=== PATIENT | male | born 1940 | race Caucasian/White ===

== ENCOUNTER 2019-08-28 18:03 | Emergency (ER) | payer OTHER ==
[~2019-08-28] VITALS: Ht 177.8 cm; Wt 68.9 kg
[2019-08-28 22:11] LABS: Basophils # (auto) 0.1 uL; Basophils % (auto) 0.8 % (0.0-2.0); Eosinophils # (auto) 0.3 uL; Eosinophils % (auto) 4.2 % (0.0-7.0); Hemoglobin 14.4 g/dL (13.5-17.5); Lymphocytes # (auto) 1.7 uL; Lymphocytes % (auto) 25.9 % (10.0-50.0); Mean Corpuscular Hemoglobin 32.6 pg (28.0-32.0); Mean Corpuscular Hgb Conc. 34.3 g/dL (32.0-36.0); Mean Corpuscular Volume 95.1 fL (80.0-100.0); Monocytes # (auto) 0.6 uL; Monocytes % (auto) 9.4 % (0.0-12.0); Neutrophils % (auto) 59.7 % (37.0-80.0); Nucleated Red Blood Cells % 0.1 %; Platelet Count (auto) 208 10^3/uL (140-450); Red Blood Cells 4.42 10^6/uL (4.5-5.90); Red Cell Distribution Width 13.1 % (11.8-14.3); White Blood Cell 6.7 10^3/uL (4.4-10.8)
[2019-08-28 22:35] LABS: Albumin 3.8 g/dL (3.4-5.0); BUN/Creatinine Ratio 18.9; Bilirubin, Total 0.6 mg/dL (0.2-1.0); Calcium 8.9 mg/dL (8.5-10.1); Potassium 4.6 mmol/L (3.5-5.1)
[2019-08-28 23:28] LABS: Urine Bacteria NONE SEEN /hpf (None Seen); Urine Blood Negative /uL (Negative); Urine Specific Gravity 1.009 (1.001-1.035); Urine WBC <1 /hpf (0 - 3)
[2019-08-29 00:01] VITALS: BP 136/62
== END 2019-08-29 00:21 | disposition home or self-care (01) ==
LOC: ER 18:04
DX: K40.90 Unilateral inguinal hernia, without obstruction or gangrene, not specified as recurrent (principal); K27.9 Peptic ulcer, site unspecified, unspecified as acute or chronic, without hemorrhage or perforation; J44.9 Chronic obstructive pulmonary disease, unspecified
CPT/HCPCS: 36415; 74176; 80053; 81001; 82150; 83690; 85025

== ENCOUNTER 2025-10-10 08:08 | Inpatient (IN) | payer OTHER ==
[~2025-10-10] VITALS: Ht 180.3 cm; Wt 67.6 kg
--- NOTE | 2025-10-10 08:41 | ED.PDOC ---
SOB-HPI HPI Comments 85-year-old male presents to the ED via EMS with a chief complaint of shortness of breath onset 1 day. Patient states he has been experiencing shortness of breath as well as hallucinations since last night, noticed this morning shortness of breath had worsened. Patient states he was at [facility] a 2 days ago, was discharged, was told he had a virus, had appointment today for CT chest. Denies fever, chills, headache, dizziness, nausea, vomiting, diarrhea, dysuria, chest pain. No other symptoms or modifying factors present at this time. Chief Complaint: Shortness of Breath Time Seen by MD: 08:30 Reviewed notes: Medications, Allergies Information Source: Patient, Emergency Med Personnel Mode of Arrival: EMS Severity: Moderate Timing: Days Duration: Since onset Context: At Rest PE Risk Factors: None History of: Recent URI Prehospital treatment: None Modifying Factors: Nothing Past Medical History PAST MEDICAL HISTORY: Denies Surgical History: Denies all surgeries Family History Family History: Reviewed,noncontributory to illness, No family hx of Cancer, No family hx of DM, No family hx of Heart dayami, No family hx of HTN, No family hx ofKidney dayami, No family hx of Liver dayami, No family hx of Lung dayami, No family hx of Stroke Social History Smoker: Non-Smoker Alcohol: Denies ETOH Use Drugs: Denies Drug Use Lives In: Home Constitutional: denies: chills, diaphoresis, fatigue, fever, malaise, sweats, weakness, others EENTM: denies: blurred vision, double vision, ear bleeding, ear discharge, ear drainage, ear pain, ear ringing, eye pain, eye redness, hearing loss, mouth pain, mouth swelling, nasal discharge, nose bleeding, nose congestion, nose pain, photophobia, tearing, throat pain, throat swelling, voice changes, others Respiratory: reports: shortness of breath; denies: cough, hemoptysis, ortho pnea, SOB at rest, SOB with excertion, stridor, wheezing, others Cardiovascular: denies: chest pain, dizzy spells, diaphoresis, Dyspnea on exertion, edema, irregular heart beat, left arm pain, lightheadedness, palpitations, PND, syncope, others Gastrointestinal: denies: abdomen distended, abdominal pain, blood streaked bowels, constipated, diarrhea, dysphagia, difficulty swallowing, hematemesis, melena, nausea, poor appetite, poor fluid intake, rectal bleeding, rectal pain, vomiting, others Genitourinary: denies: burning, dysuria, flank pain, frequency, hematuria, inc ontinence, penile discharge, penile sore, pain, testicle pain, testicle swelling, urgency, others Neurological: denies: dizziness, fainting, headache, left sided numbness, left sided weakness, numbness, paresthesia, pre-existing deficit, right sided numbness, right sided weakness, seizure, speech problems, tingling, tremors, weakness, others Musculoskeletal: denies: back pain, gout, joint pain, joint swelling, muscle pain, muscle stiffness, neck pain, others Integumetry: denies: bruises, change in color, change in hair/nails, dryness, laceration, lesions, lumps, rash, wounds, others Allergic/Immunocompromised: denies: Difficulty Healing, Frequent Infections, Hives, Itching, others Hematologic/Lymphatic: denies: anemia, blood clots, easy bleeding, easy bruising, swollen glands, others Endocrine: denies: excessive hunger, excessive sweating, excessive thirst, excessive urination, flushing, intolerance to cold, intolerance to heat, unexplained weight gain, unexplained weight loss, others Psychiatric: reports: others (hallucinations); denies: anxiety, bipolar disorder, depression, hopeless, panic disorder, schizophrenia, sleepless, suicidal All Other Systems: Reviewed and Negative Physical Exam General Appearance: Moderate Distress, Normal HEENT: Normal ENT Inspection, Pharynx Normal, TMs Normal Neck: Full Range of Motion, Non-Tender, Normal, Normal Inspection Respiratory: Chest Non-Tender, No Accessory Muscle Use, Other (Coarse breath sounds) Cardiovascular: No Edema, No JVD, No Murmur, No Gallop, Normal Peripheral Pulses, Regular Rate/Rhythm Breast Exam: Deferred Gastrointestinal: No Organomegaly, Non Tender, No Pulsatile Mass, Normal Bowel Sounds, Soft Genitalia: Deferred Pelvic: Deferred Rectal: Deferred Extremities: No calf tenderness, Normal capillary refill, Normal inspection, Normal range of motion, Non-tender, No pedal edema Musculoskeletal : Apperance: Normal Neurologic: Alert, supervisor riprap placing II-XII nml as Tested, No Motor Deficits, Normal Affect, Normal Mood, No Sensory Deficits Cerebellar Function: NOT DONE Reflexes: NOT DONE Skin: Dry, Normal Color, Warm Peripheral Pulses: 3+ Radial (R), 3+ Radial (L) Lymphatic: No Adenopathy EKG EKG : Pulse Rate (adult): 80 Cardiac Rhythm: NSR Hypertrophy: LVH Was a procedure done? Was a procedure done?: No Differential Dx Differential Diagnosis: Anxiety, Asthma, Bronchitis, CHF, COPD X-Ray, Labs, Meds, VS Vital Signs Date Time Temp Pulse Resp B/P (MAP) Pulse Ox O2 Delivery O2 Flow Rate FiO2 10/10/25 10:10 98.0 71 15 109/62 (78) 92 98.0 10/10/25 08:54 80 10/10/25 08:32 80 10/10/25 08:24 97.7 86 20 129/53 (78) 94 97.7 10/10/25 08:09 97.8 87 18 146/75 100 97.8 Lab Test 10/10/25 10:04 10/10/25 08:54 Range/Units Troponin I High Sensitivity Pending 32 </=54 ng/L White Blood Count 9.4 4.4-10.8 10^3/uL Red Blood Count 4.44 L 4.5-5.90 10^6/uL Hemoglobin 14.2 13.5-17.5 g/dL Hematocrit 40.9 L 41.0-53.0 % Mean Corpuscular Volume 92.0 80.0-100.0 fL Mean Corpuscular Hemoglobin 32.0 28.0-32.0 pg Mean Corpuscular Hemoglobin Concent 34.7 32.0-36.0 g/dL Red Cell Distribution Width 13.7 11.8-14.3 % Platelet Count 255 140-450 10^3/uL Mean Platelet Volume 7.0 6.9-10.8 fL Neutrophils (%) (Auto) 77.8 37.0-80.0 % Lymphocytes (%) (Auto) 14.4 10.0-50.0 % Monocytes (%) (Auto) 7.3 0.0-12.0 % Eosinophils (%) (Auto) 0.3 0.0-7.0 % Basophils (%) (Auto) 0.2 0.0-2.0 % Neutrophils # (Auto) 7.3 1.6-8.6 10 ^3/uL Lymphocytes # (Auto) 1.3 0.4-5.4 10 ^3/uL Monocytes # (Auto) 0.7 0-1.3 10 ^3/uL Eosinophils # (Auto) 0 0-0.8 10 ^3/uL Basophils # (Auto) 0 0-0.2 10 ^3/uL Nucleated Red Blood Cells 0.1 % Sodium Level 140 136-145 mmol/L Potassium Level 4.3 3.5-5.1 mmol/L Chloride Level 104 98-107 mmol/L Carbon Dioxide Level 26 20-31 mmol/L Anion Gap 10 5-15 Blood Urea Nitrogen 15 9-23 mg/dL Creatinine 1.01 0.700-1.30 mg/dL Glomerular Filtration Rate Calc 72 >90 mL/min BUN/Creatinine Ratio 14.9 10.0-20.0 Serum Glucose 101 74-106 mg/dL Calcium Level 9.3 8.7-10.4 mg/dL B-Type Natriuretic Peptide 177.83 0-100 pg/mL [place] [id number] Ph: [phone] DIAGNOSTIC IMAGING Diagnostic Imaging Report : [id number] Signed PATIENT: JOHNSON LEIJA ACCT: [id number] UNIT: [id number] : 1940 LOC: ER ROOM / BED: / AGE / SEX: 85 / M ADM STATUS: REG ER SERVICE 9 ORDERING PHYSICIAN: SEAN CRUZ MD PROCEDURE(s): CXRP - CHEST PORTABLE REASON: sob ORDER NUMBER(s): [id number], ACCESSION NUMBER(s): [id number] CLINICAL HISTORY: sob TECHNIQUE: Single view of the chest was obtained. COMPARISON: None FINDINGS: The heart size and pulmonary vasculature are normal. The lungs are clear. IMPRESSION: NO ACUTE CARDIOPULMONARY PROCESS. ATED BY: SHANELL CABALLERO MD DICTATED DATE/TIME: 10/10/25924 SIGNED BY: SHANELL CABALLERO MD SIGNED DATE/TIME: 10/10/25924 CC: Patient alert. Vitals stable. Came in because of shortness a breath. Answering questions. Chest x-ray reviewed does not show any acute process. Possible pneumonitis. Was seen at [facility] few days ago for which she left without any help. Continues to have shortness a breath. Was given steroid. Was given breathing treatment. Explained to the patient that he will be admitted. Continue monitoring. Time of 1ST Reevaluation: 09:00 Reevaluation 1ST: Unchanged Patient Education/Counseling: Diagnosis, Treatment, Prognosis Family Education/Counseling: No Family Present SEPSIS Sepsis Screen Date sepsis recognized/suspect: Oct 10, 2025 Time Sepsis recognized/suspect: 808 Recent Procedure: No On Antibiotic Therapy: No Respiratory Rate >20: No Heart Rate >90: No Temp<36 C (96.8 F) or >38.3 C: No SBP <90 or MAP <65 mmHG: No New Acute Mental Status Change: No Is the patient on CPAP, BIPAP,: No Physician Orders Chest Portable (10/10/25 08:40) Urinalysis (10/10/25 08:40) Troponin-I Hs (10/10/25 09:40) Troponin-I Hs (10/10/25 11:40) Rapid Influenza A&B (10/10/25 08:40) Covid19 Antigen Karli (10/10/25 ) Vital Signs Date Time Temp Pulse Resp B/P (MAP) Pulse Ox O2 Delivery O2 Flow Rate FiO2 10/10/25 10:10 98.0 71 15 109/62 (78) 92 98.0 10/10/25 08:54 80 10/10/25 08:32 80 10/10/25 08:24 97.7 86 20 129/53 (78) 94 97.7 10/10/25 08:09 97.8 87 18 146/75 100 97.8 Laboratory Tests Test 10/10/25 08:54 White Blood Count 9.4 10^3/uL (4.4-10.8) Departure 1 Departure Time of Disposition: 10:22 Impression: Primary Impression: Pneumonitis Disposition: ADMITTED INPATIENT Admit to: Med Surg Condition: Guarded Critical Care Note Critical Care Time?: Yes (90 min-critical care time only) Stability Stability form required: No Heart Score Heart Score: Heart Score Response (Comments) Value History N/A 0 EKG N/A 0 Age N/A 0 Risk Factors N/A 0 Troponin N/A 0 Total 0 I personally scribed for NANCY,SEAN MD ([email or web address]) on 10/10/25 at 08:41. Electronically submitted by Emilie Franklin ([email or web address]). I personally scribed for SEAN CRUZ MD ([email or web address]) on 10/10/25 at 08:54. Electronically submitted by Emilie Franklin ([email or web address]). I personally scribed for SEAN CRUZ MD ([email or web address]) on 10/10/25 at 09:55. Electronically submitted by Emilie Franklin ([email or web address]). SEAN CRUZ MD Oct 10, 2025 08:41
--- NOTE | 2025-10-10 08:49 | ECG ---
[facility] Test Date: 2025-10-10 Test Time: 08:32:00 Pat Name: JOHNSON LEIJA Department: ED Room: [address] [place] [address] Gender: M Control Panel Operator: CHIDI : 1940 Requested By: SEAN CRUZ Order Number: [id number] Reading MD: Wallace Cardenas Measurements Intervals [place] Rate: 80 P: 90 MO: 136 QRS: 73 QRSD: 91 T: 11 QT: 417 QTc: 482 Interpretive Statements Sinus rhythm LVH with secondary repolarization abnormality Borderline prolonged QT interval Baseline wander in lead(s) V1,V4 Electronically Signed On 10-10-2025 15:09:03 PST by Wallace Cardenas Please click the below link to view image of tracing.
[2025-10-10 09:11] LABS: Hematocrit 40.9 % (41.0-53.0); Hemoglobin 14.2 g/dL (13.5-17.5); Mean Corpuscular Hemoglobin 32.0 pg (28.0-32.0); Mean Corpuscular Volume 92.0 fL (80.0-100.0); Nucleated Red Blood Cells % 0.1 %
[2025-10-10 09:22] LABS: Chloride 104 mmol/L (98-107); Potassium 4.3 mmol/L (3.5-5.1); Sodium 140 mmol/L (136-145)
[2025-10-10 09:23] LABS: Anion Gap 10 (5-15); Calcium 9.3 mg/dL (8.7-10.4); Carbon Dioxide 26 mmol/L (20-31)
--- NOTE | 2025-10-10 09:27 | DVH ---
CLINICAL HISTORY: sob TECHNIQUE: Single view of the chest was obtained. COMPARISON: None FINDINGS: The heart size and pulmonary vasculature are normal. The lungs are clear. IMPRESSION: NO ACUTE CARDIOPULMONARY PROCESS.
[2025-10-10 09:28] LABS: BUN/Creatinine Ratio 14.9 (10.0-20.0); Blood Urea Nitrogen 15 mg/dL (9-23); Glucose 101 mg/dL (74-106)
[2025-10-10] MEDS: methylPREDNISolone SOD SUCC 125 MG/2 ML VL IV ONE (10:24)
[2025-10-10] MEDS ORDERED: ACETAMINOPHEN 325 MG TAB PO PRN (10:30)
[2025-10-10] MEDS ORDERED: ONDANSETRON HCL 4 MG/2 ML VIAL IV PRN (10:30)
[2025-10-10] MEDS ORDERED: HYDROcodone-ACET 5/325MG TAB PO PRN (10:30)
[2025-10-10] MEDS: SODIUM CHLOR 0.9% PF (SALINE LOCK) 10ML VIAL/SYR IV SCH (10:48)
[2025-10-10] MEDS: ALBUTEROL SULF 2.5 MG/0.5ML(0.5%) NEB SOLN NEB ONE (10:58)
[2025-10-10] MEDS: IPRATROPIUM BROM 0.5 MG/2.5ML INH SOL NEB ONE (10:58)
--- NOTE | 2025-10-10 11:26 | DVHHP2 ---
History of Present Illness Reason for Visit: Acute respiratory distress History of Present Illness The patient is a 85-year-old male with past medical history of hyperlipidemia who presented to [facility] ED with complaint of shortness of breaths for the past 1 day. Patient reports that he has been experiencing di fficulty breathing associated with hallucination since last night, getting worse today that prompted this visit. Patient states he was seen at [facility] 2 days ago with similar symptoms, discharged, and was told he had a virus; had appointment today for CT chest. Patient was seen and evaluated in the ED, laboratory data shows WBC 9.4, platelets 255, sodium 140, potassium 4.3, BUN 15, creatinine 1.01, GFR 72, glucose 101, calcium 9.3, troponin 32, BNP 177.83, blood pressure 109/62, heart rate 72, temperature 98.0 F, O2 saturation 94% on oxygen. Chest x-ray show no acute cardiopulmonary process. Please see medication orders section in the computer. On my assessment, patient denied chest pain, no headache, dizziness, diaphoresis, currently on oxygen, no diarrhea, nausea, vomiting, fever, no chills. Patient was admitted for further evaluation and medical management. Past Medical History Hyperlipidemia Past Surgical History Denies all surgeries Family History Reviewed, noncontributory to the management of this case. Past Social History The patient lives at home, denies smoking, alcohol or illicit drugs abuse. Review of Systems Constitutional: Yes: Weakness; No: Fever, Chills, Sweats, Malaise, Other Eyes: No: Pain, Vision change, Conjunctivae inflammation, Eyelid inflammation, Other, Redness ENT: No: Ear pain, Ear discharge, Nose pain, Nose discharge, Nose congestion, Mouth pain, Mouth swelling, Throat pain, Throat swelling, Other Respiratory: Shortness of breath; No: Cough, Dry, SOB with excertion, Wheezing, Hemoptysis, Pleuritic Pain, Sputum, Wheezing, Other Cardiovascular: No: Chest Pain, Palpitations, Orthopnea, Paroxysmal Noc. Dyspnea, Edema, Lt Headedness, Other Gastrointestinal: No: Nausea, Vomiting, Abdominal Pain, Diarrhea, Constipation, Melena, Hematochezia, Other Genitourinary: No Dysuria, No Frequency, No Incontinence, No Hematuria, No Retention, No Other Musculoskeletal: No: other, neck pain, shoulder pain, arm pain, back pain, hand pain, leg pain, foot pain Skin: No: Rash, Lesions, Jaundice, Bruising, Other Neurological: No: Weakness, Numbness, Incoordination, Change in speech, Confusion, Seizures, Other Allergies: Coded Allergies: NO KNOWN ALLERGIES (Unverified , 10/10/25) Medications Current Medications Medications Dose Ordered Sig/Boni Route Start Time Stop Time Status Last Admin Dose Admin Albuterol 2.5 mg Q3HPRN PRN NEB 10/10/25 10:30 Ipratropium [place] 0.5 mg Q4HPRN PRN NEB 10/10/25 10:30 Methylprednisolone Sodium Succinate 40 mg BID IV 10/10/25 22:00 Famotidine 20 mg Q12HR IV 10/10/25 22:00 Sodium Chloride 10 ml Q8HR IV 10/10/25 14:00 10/10/25 10:48 10 ML Acetaminophen/ Hydrocodone Bitart 1 tab Q4HP PRN PO 10/10/25 10:30 Ondansetron HCl 4 mg Q4HP PRN IV 10/10/25 10:30 Docusate Sodium 100 mg BIDPRN PRN PO 10/10/25 10:30 Acetaminophen 650 mg Q6HP PRN PO 10/10/25 10:30 Exam Vital Signs Vital Signs Date Time Temp Pulse Resp B/P (MAP) Pulse Ox O2 Delivery O2 Flow Rate FiO2 10/10/25 11:02 20 96 Room Air* 0 21 10/10/25 10:10 98.0 71 109/62 (78) 98.0 General Appearance: Alert, Oriented X3, Cooperative, No acute distress HEENT: Atraumatic, PERRLA, EOMI, Mucous membr. moist/pink Respiratory: Normal air movement Cardiovascular: Regular rate, Normal S1, Normal S2, No murmurs Abdominal: Normal bowel sounds, Soft, No tenderness, No hepatospenomegaly, No masses Extremities: No clubbing, No cyanosis, No edema, Normal pulses, No tenderness/swelling Skin: No rashes, No significant lesion Neuro: Normal speech, Normal tone, Sensation intact, Cranial nerves 3-12 NL, Reflexes 2+, Other (Generalized weakness) Psych/Mental Status: Mental status NL, Mood NL Labs/Xrays Labs Test 10/10/25 11:03 10/10/25 08:54 Range/Units White Blood Count 9.4 4.4-10.8 10^3/uL Red Blood Count 4.44 L 4.5-5.90 10^6/uL Hemoglobin 14.2 13.5-17.5 g/dL Hematocrit 40.9 L 41.0-53.0 % Mean Corpuscular Volume 92.0 80.0-100.0 fL Mean Corpuscular Hemoglobin 32.0 28.0-32.0 pg Mean Corpuscular Hemoglobin Concent 34.7 32.0-36.0 g/dL Red Cell Distribution Width 13.7 11.8-14.3 % Platelet Count 255 140-450 10^3/uL Mean Platelet Volume 7.0 6.9-10.8 fL Neutrophils (%) (Auto) 77.8 37.0-80.0 % Lymphocytes (%) (Auto) 14.4 10.0-50.0 % Monocytes (%) (Auto) 7.3 0.0-12.0 % Eosinophils (%) (Auto) 0.3 0.0-7.0 % Basophils (%) (Auto) 0.2 0.0-2.0 % Neutrophils # (Auto) 7.3 1.6-8.6 10 ^3/uL Lymphocytes # (Auto) 1.3 0.4-5.4 10 ^3/uL Monocytes # (Auto) 0.7 0-1.3 10 ^3/uL Eosinophils # (Auto) 0 0-0.8 10 ^3/uL Basophils # (Auto) 0 0-0.2 10 ^3/uL Nucleated Red Blood Cells 0.1 % Sodium Level 140 136-145 mmol/L Potassium Level 4.3 3.5-5.1 mmol/L Chloride Level 104 98-107 mmol/L Carbon Dioxide Level 26 20-31 mmol/L Anion Gap 10 5-15 Blood Urea Nitrogen 15 9-23 mg/dL Creatinine 1.01 0.700-1.30 mg/dL Glomerular Filtration Rate Calc 72 >90 mL/min BUN/Creatinine Ratio 14.9 10.0-20.0 Serum Glucose 101 74-106 mg/dL Calcium Level 9.3 8.7-10.4 mg/dL B-Type Natriuretic Peptide 177.83 0-100 pg/mL PATIENT: JOHNSON LEIJA ACCT: [id number] UNIT: [id number] : 1940 LOC: ER ROOM / BED: / AGE / SEX: 85 / M ADM STATUS: REG ER SERVICE 0840 ORDERING PHYSICIAN: SEAN CRUZ MD PROCEDURE(s): CXRP - CHEST PORTABLE REASON: sob ORDER NUMBER(s): [id number], ACCESSION NUMBER(s): [id number] CLINICAL HISTORY: sob TECHNIQUE: Single view of the chest was obtained. COMPARISON: None FINDINGS: The heart size and pulmonary vasculature are normal. The lungs are clear. IMPRESSION: NO ACUTE CARDIOPULMONARY PROCESS. SEPSIS Sepsis Screen Date sepsis recognized/suspect: Oct 10, 2025 Time Sepsis recognized/suspect: 808 Recent Procedure: No On Antibiotic Therapy: No Respiratory Rate >20: No Heart Rate >90: No Temp<36 C (96.8 F) or >38.3 C: No SBP <90 or MAP <65 mmHG: No New Acute Mental Status Change: No Is the patient on CPAP, BIPAP,: No Physician Orders Chest Portable (10/10/25 08:40) Urinalysis (10/10/25 08:40) Troponin-I Hs (10/10/25 11:40) Rapid Influenza A&B (10/10/25 08:40) Covid19 Antigen Karli (10/10/25 ) Albuterol Medneb (Ventolin Medneb) (10/10/25 10:30) Ipratropium Medneb (Atrovent Medneb) (10/10/25 10:30) Methylprednisolone Sod Succ (Solu Medrol (10/10/25 22:00) Famotidine Injection (Pepcid Injection) (10/10/25 22:00) Allergies (10/10/25 10:26) Code Status (10/10/25 10:26) Sodium Chloride Lock (Saline Lock Ns) (10/10/25 14:00) Oxygen Per Hour (10/10/25 10:26) Hydrocodone-Acet 5/325mg Tab ([place] 5/32 (10/10/25 10:30) Ondansetron Hcl (Zofran) (10/10/25 10:30) Docusate Sodium Capsule (Colace Capsule) (10/10/25 10:30) Fall Risk Precautions In Place QSHIFT (10/10/25 10:26) Complete Blood Count (10/11/25 04:00) Comprehensive Metabolic Panel (10/11/25 04:00) Cardiac Diet-2gna,Lofat,Lochol (10/10/25 Lunch) Condition: Serious (10/10/25 10:26) Acetaminophen Tablet (Tylenol Tablet) (10/10/25 10:30) Maintain Bed Rest (10/10/25 10:26) Sequential Compression Device (10/10/25 ) Admit (10/10/25 11:25) Nitroglycerin Sublingual (Ntrostat Subli (10/10/25 11:30) Morphine Sulfate Injection (10/10/25 11:30) Stat Ekg For Chest Pain (10/10/25:) Notify Of Changes From Base (10/10/25 11:25) Fruit Farmer For 24 Hours (10/10/25 11:25) Emergency Dysrhythmia Protocol (10/10/25 11:25) Rhythm Strips Once Every Shift (10/10/25 11:25) Oxygen By Nasal Cannula (10/10/25 11:25) Vital Signs Date Time Temp Pulse Resp B/P (MAP) Pulse Ox O2 Delivery O2 Flow Rate FiO2 10/10/25 11:02 20 96 Room Air* 0 21 10/10/25 10:30 20 94 Room Air 0 10/10/25 10:10 98.0 71 15 109/62 (78) 92 98.0 10/10/25 08:54 80 10/10/25 08:32 80 10/10/25 08:24 97.7 86 20 129/53 (78) 94 97.7 10/10/25 08:09 97.8 87 18 146/75 100 97.8 Laboratory Tests Test 10/10/25 08:54 White Blood Count 9.4 10^3/uL (4.4-10.8) Medications Medications Dose Ordered Sig/Boni Route Start Time Stop Time Status Last Admin Dose Admin Albuterol 5 mg ONCE ONCE NEB 10/10/25 10:30 10/10/25 10:31 DC 10/10/25 10:58 5 MG Ipratropium [place] 0.5 mg ONCE ONCE NEB 10/10/25 10:30 10/10/25 10:31 DC 10/10/25 10:58 0.5 MG Methylprednisolone Sodium Succinate 125 mg ONCE ONCE IV 10/10/25 08:45 10/10/25 08:46 DC 10/10/25 10:24 125 MG Sodium Chloride 10 ml Q8HR IV 10/10/25 14:00 10/10/25 10:48 10 ML Assessment/Plan Assessment/Plan Acute respiratory distress Generalized weakness Plan 1. Admit to telemetry unit 2. Breathing treatment 3. Pain control management 4. Management of fluids and electrolytes 5. Consultation for hospitalist 6. Diagnostic tests chest x-ray 7. DVT prophylaxis-on SCDs 8. Repeat labs CBC, CMP in a.m. 9. Continue with current medical management 10. Treatment plan discussed with patient and RN. Patient verbalized understanding. Plan discussed with: Patient, Other (RN) My Orders Orders - KENRICK PEREZ DNP Procedure Category Date Status Time Albuterol Medneb PHA 10/10/25 In Process (Ventolin Medneb) 10:30 Ipratropium Medneb PHA 10/10/25 In Process (Atrovent Medneb) 10:30 Methylprednisolone PHA 10/10/25 In Process Sod Succ (Solu Medrol 22:00 Famotidine Injection PHA 10/10/25 In Process (Pepcid Injection) 22:00 Allergies DAVID 10/10/25 In Process 10:26 Code Status CODE 10/10/25 Transmitted 10:26 Sodium Chloride Lock PHA 10/10/25 In Process (Saline Lock Ns) 14:00 Oxygen Per Hour RT 10/10/25 Transmitted 10:26 Hydrocodone-Acet PHA 10/10/25 In Process 5/325mg Tab ([place] 10:30 Ondansetron Hcl PHA 10/10/25 In Process (Zofran) 10:30 Docusate Sodium PHA 10/10/25 In Process Capsule (Colace 10:30 Fall Risk Precautions DAVID 10/10/[address] 10:26 Complete Blood Count LAB 10/11/25 Verified 04:00 Comprehensive LAB 10/11/25 Verified Metabolic Panel 04:00 Cardiac DIET 10/10/25 Transmitted Diet-2gna,Lofat,Lochol Lunch Condition: Serious DAVID 10/10/25 In Process 10:26 Acetaminophen Tablet PHA 10/10/25 In Process (Tylenol Tablet) 10:30 Maintain Bed Rest DAVID 12/2/25 In Process 10:26 Sequential DAVID 10/10/25 In Process Compression Device Admit ADMIT 10/10/25 Verified 11:25 Nitroglycerin PHA 10/10/25 Verified Sublingual (Ntrostat 11:30 Morphine Sulfate PHA 10/10/25 Verified Injection 11:30 Stat Ekg For Chest [facility] 10/10/25 Verified Pain 11:25 Notify Md Of Changes [facility] 10/10/25 Verified From Base 11:25 Fruit Farmer For [facility] 10/10/25 Verified 24 Hours 11:25 Emergency Dysrhythmia [facility] 10/10/25 Verified Protocol 11:25 Rhythm Strips Once [facility] 10/10/25 Verified Every Shift 11:25 Oxygen By Nasal RT 10/10/25 Verified Cannula 11:25 Problem List: (1) Acute respiratory distress (2) Generalized weakness Date of Service: Oct 10, 2025 Billing Provider: KENRICK PEREZ DNP Common Visit Codes: [id number] INP/OBS CARE (HIGH) KENRICK PEREZ DNP Oct 10, 2025 11:26
[2025-10-10] MEDS ORDERED: NITROGLYCERIN 0.4 MG SL TAB SL PRN (11:30)
[2025-10-10 12:04] VITALS: PULSE 71; RESP 20; O2SAT 96
[2025-10-10 12:42] LABS: Urine Protein, UAD Negative (Negative)
[2025-10-10] MEDS ORDERED: MORPHINE SULFATE 4 MG/ML SYR/VIAL IV PRN (12:45)
[2025-10-10 15:16] VITALS: PULSE 85; RESP 17; O2SAT 94
[2025-10-10 16:08] LABS: COVID19 ANTIGEN SOFIA FIA NEGATIVE (NEGATIVE)
[2025-10-10 18:12] VITALS: BP 129/70; PULSE 77; RESP 16; TEMP 98.1; O2SAT 94
[2025-10-10] MEDS ORDERED: ATOR20TA50 PO (18:23)
[2025-10-10] MEDS ORDERED: ALBU108A5 INH (18:23)
[2025-10-10] MEDS ORDERED: PRED20TA2 PO (18:23)
[2025-10-10 20:00] VITALS: PULSE 86
[2025-10-10 21:00] VITALS: BP 120/64; PULSE 94; RESP 18; TEMP 98.4; O2SAT 95
[2025-10-10] MEDS: FAMOTIDINE (10MG/ML) 2ML VL IV SCH (21:29)
[2025-10-10] MEDS: methylPREDNISolone SOD SUCC 40 MG/ML VL IV SCH (21:29)
[2025-10-10] MEDS: IPRATROPIUM BROM 0.5 MG/2.5ML INH SOL NEB PRN (21:51)
[2025-10-10] MEDS: ALBUTEROL SULF 2.5 MG/0.5ML(0.5%) NEB SOLN NEB PRN (21:51)
[2025-10-10 21:53] VITALS: PULSE 88; RESP 18; O2SAT 94
[2025-10-11] VITALS (15 sets, daily range): BP systolic 112–132; BP diastolic 58–76; PULSE 61–97; RESP 16–20; TEMP 97.8–98.8; O2SAT 91–100
[2025-10-11 06:30] LABS: Hematocrit 39.5 % (41.0-53.0); Hemoglobin 13.5 g/dL (13.5-17.5); Mean Corpuscular Hemoglobin 31.2 pg (28.0-32.0); Mean Corpuscular Volume 91.6 fL (80.0-100.0); Nucleated Red Blood Cells % 0.0 %
[2025-10-11 06:46] LABS: Alanine Aminotransferase 23 U/L (7-40); Albumin 3.9 g/dL (3.2-4.8); Alkaline Phosphatase 74 U/L (46-116); Anion Gap 9 (5-15); BUN/Creatinine Ratio 24.0 (10.0-20.0); Bilirubin, Total 0.7 mg/dL (0.2-1.0); Calcium 9.3 mg/dL (8.7-10.4); Carbon Dioxide 25 mmol/L (20-31); Chloride 105 mmol/L (98-107); Potassium 5.0 mmol/L (3.5-5.1); Sodium 139 mmol/L (136-145); Total Protein 6.5 g/dL (5.7-8.2)
[2025-10-11 06:49] LABS: Blood Urea Nitrogen 24 mg/dL (9-23); Glucose 125 mg/dL (74-106)
[2025-10-11] MEDS: IPRATROPIUM BROM 0.5 MG/2.5ML INH SOL NEB SCH (14:16)
[2025-10-11] MEDS: ALBUTEROL SULF 2.5 MG/0.5ML(0.5%) NEB SOLN NEB SCH (14:16)
[2025-10-11] MEDS ORDERED: guaiFENesin-DM 100/10mg/5ml SYR PO PRN (15:15)
--- NOTE | 2025-10-11 15:17 | DVHPN2 ---
Subjective Patient continues to report having productive cough and shortness of breath. Reviewed: Care Plan, H&P, Labs, Medications Changes from previous H/P or p: No Changes General: Per HPI Eyes: No Pain, No Vision change, No Conjunctivae inflammation, No Eyelid inflammation, No Other, No Redness ENT: No Ear pain, No Ear discharge, No Nose pain, No Nose discharge, No Nose congestion, No Mouth pain, No Mouth swelling, No Throat pain, No Throat swelling, No Other Cardiovascular: No Chest Pain, No Palpitations, No Orthopnea, No Paroxysmal Noc. Dyspnea, No Edema, No Lt Headedness, No Other Respiratory: No Cough, No Dry; Shortness of breath; No SOB with excertion, No Wheezing, No Hemoptysis, No Pleuritic Pain, No Sputum, No Other Gastrointestinal: No Nausea, No Vomiting, No Abdominal Pain, No Diarrhea, No Constipation, No Melena, No Hematochezia, No Other Genitourinary: No Dysuria, No Frequency, No Incontinence, No Hematuria, No Retention, No Other Musculoskeletal: No other, No neck pain, No shoulder pain, No arm pain, No back pain, No hand pain, No leg pain, No foot pain Skin: No Rash, No Lesions, No Jaundice, No Bruising, No Other Objective Vitals Vital Signs Date Time Temp Pulse Resp B/P (MAP) Pulse Ox O2 Delivery O2 Flow Rate FiO2 10/11/25 14:16 93 Room Air* 0 21 10/11/25 14:16 90 18 10/11/25 12:30 97.8 123/65 (84) 97.8 Intake/Output Intake and Output 10/11/25 07:00 Intake Total 400 ml Balance 400 ml Intake Oral 400 ml # Voids 1 General Appearance: Alert, Oriented X3, Cooperative, moderate distress HEENT: Atraumatic, PERRLA Lungs: Other (Bilateral rhonchi) Cardiovascular: Normal S1, Normal S2 Abdomen: Normal bowel sounds, Soft, No tenderness, No hepatospenomegaly Musculoskeletal: Normal sensory function, Normal motor function Extremities: No clubbing, No cyanosis, No edema, Normal pulses, No tenderness/swelling Neuro: Normal gait, Normal speech Skin: Dry, Intact Psych/Mental Status: Mental status NL, Mood NL Medications Current Medications Medications Dose Ordered Sig/Boni Route Start Time Stop Time Status Last Admin Dose Admin Methylprednisolone Sodium Succinate 40 mg BID IV 10/10/25 22:00 10/11/25 10:28 40 MG Famotidine 20 mg Q12HR IV 10/10/25 22:00 10/11/25 10:28 20 MG Sodium Chloride 10 ml Q8HR IV 10/10/25 14:00 10/11/25 05:08 10 ML Acetaminophen/ Hydrocodone Bitart 1 tab Q4HP PRN PO 10/10/25 10:30 Ondansetron HCl 4 mg Q4HP PRN IV 10/10/25 10:30 Docusate Sodium 100 mg BIDPRN PRN PO 10/10/25 10:30 Acetaminophen 650 mg Q6HP PRN PO 10/10/25 10:30 Nitroglycerin 0.4 mg Q5MINP PRN SL 10/10/25 11:30 Morphine Sulfate 2 mg Q30M PRN IV 10/10/25 12:45 Albuterol 2.5 mg Q4HR NEB 10/11/25 14:00 10/11/25 14:16 2.5 MG Ipratropium [place] 0.5 mg Q4H NEB 10/11/25 14:00 10/11/25 14:16 0.5 MG Acetylcysteine 100 mg Q8HR NEB 10/11/25 22:00 UNV Pantoprazole Sodium 40 mg DAILY@0600 PO 10/12/25 06:00 UNV Budesonide 0.5 mg BID NEB 10/11/25 22:00 UNV Laboratory Results Laboratory Tests 10/11/25 05:44 Chemistry Test 10/11/25 05:44 Albumin 3.9 g/dL (3.2-4.8) Calcium Level 9.3 mg/dL (8.7-10.4) Total Protein 6.5 g/dL (5.7-8.2) LFT Test 10/11/25 05:44 Alanine Aminotransferase (ALT) 23 U/L (7-40) Alkaline Phosphatase 74 U/L (46-116) Aspartate Amino Transferase (AST) 23 U/L (13-40) Total Bilirubin 0.7 mg/dL (0.2-1.0) Urinalysis Test 10/10/25 12:00 Urine Color Light-yellow (Yellow) Urine Clarity Clear (Clear) Urine pH 5.0 (5.0-9.0) Urine Specific [place] 1.015 (1.001-1.035) Urine Protein Negative (Negative) Urine Ketones 1+ (Negative) H Urine Blood Negative /uL (Negative) Urine Nitrite Negative (Negative) Urine Bilirubin Negative (Negative) Urine Urobilinogen Normal mg/dL (Negative) Urine Leukocyte Esterase Negative /uL (Negative) Urine RBC None seen /hpf (0 - 3) Urine Microscopic WBC < 1 /HPF (0-3) Urine Squamous Epithelial Cells None seen /hpf (<5) Urine Bacteria None seen /hpf (None Seen) Urine Mucus Few (None Seen) Urine Glucose Normal mg/dL (Normal) Microbiology Microbiology Date/Time Source Procedure Growth Status 10/10/25 18:57 Nose MRSA Screen - Final Complete Labs and/or images reviewed: Labs reviewed by me, Image(s) reviewed by me Assessment/Plan Assessment/Plan Impression: -acute hypoxic respiratory failure -probable COPD with exacerbation -probable Gram-positive/Gram-negative etiology -primary hypertension -dyslipidemia -rule out cervical spine stenosis Plan: -CT scan of the chest pain cervical spine -start antibiotic therapy with Rocephin and azithromycin -q.4 hour bronchodilators with DuoNeb. Add Pulmicort b.i.d.. Mucomyst q.8 hours with the area of the treatment -start antitussives with guaifenesin DM -sputum culture -PPI -repeat labs in a.m. Total time spent with patient discussing and formulating plan of care: 35 minutes. This medical document was created using an electronic medical record system with [employer] dictation system. Although this document has been carefully reviewed, there may still be some phonetic and typographical errors. These areas are purely typographical due to imperfections of the software programs, and do not reflect any compromise in the patient's medical care. Plan discussed with: Patient, Other (RN) My Orders Orders - FABIOLA MORENO BIOINFORMATICS SOFTWARE ENGINEER Procedure Category Date Status Time Albuterol Medneb PHA 10/11/25 In Process (Ventolin Medneb) 14:00 Ipratropium Medneb PHA 10/11/25 In Process (Atrovent Medneb) 14:00 Acetylcysteine PHA 10/11/25 Logged Inhalation 10% 22:00 Pantoprazole Tablet PHA 10/12/25 Logged (Protonix Tablet) 06:00 Budesonide PHA 10/11/25 Logged (Inhalation) 22:[address] 10/11/25 Logged 15:[address] 10/11/25 Logged Contrast 15:07 Date of Service: Oct 11, 2025 Billing Provider: FABIOLA MORENO NP Common Visit Codes: [id number] INP/OBS CARE(HIGH) FABIOLA MORENO NP Oct 11, 2025 15:17
--- NOTE | 2025-10-11 16:39 | DVH ---
EXAM: CT CERVICAL WITHOUT CONTRAST INDICATION: Neck pain, with right shoulder paresthesia. Rule out C- samantha EXAM DATE: 10/11/2025 03:30 PM COMPARISON: None Technique: CT exam of the cervical spine was performed without intravenous contrast. CT Dose: CTDI volume is 19.57 mGy. Dose-length product is 472.02 mGy*cm Findings: No evidence of acute fracture. Alignment is within normal limits. Degenerative changes of the cervical spine. No high-grade canal stenosis. No prevertebral edema. Paraspinal soft tissues are within normal limits. Visualized lung apices are clear. IMPRESSION: NO EVIDENCE OF ACUTE FRACTURE OR TRAUMATIC MALALIGNMENT OF THE CERVICAL SPINE.
--- NOTE | 2025-10-11 16:43 | DVH ---
Exam: CT CHEST WITHOUT CONTRAST Reason for study/Clinical History: pna, COPD Comparison Study: XY CHEST PORTABLE on DOS: 10/10/25 Exam Date: 10/11/2025 03:32 PM TECHNIQUE: Multidetector CT of the chest was performed from the lung apices to the upper abdomen without the use of intravenous contract. Axial, coronal and sagittal multiplanar reformats were performed. Radiation Dose Information: CT Dose: CTDI volume is 6.86 mGy. Dose-length product is 291.04 mGy*cm The dose indicators for CT are the volume Computed Tomography (CT) Dose Index (CTDIvol) and the Dose Length Product (DLP), and are measured in units of mGy and mGy-cm, respectively. These indicators are not patient dose, but values generated from the CT scanner acquisition factors. The report includes radiation exposure data for exposures received during this examination. Findings: Lower neck: Unremarkable. Lungs and Pleura: Diffuse bronchial wall thickening with bilateral lower lobe mucous plugging and tree-in-bud nodularities. No focal consolidation. No significant pleural effusion. Lymph nodes: No mediastinal, hilar, or axillary lymphadenopathy. Calcified right hilar lymph node likely from granulomatous infection. Cardiovascular and Mediastinum: No significant pericardial effusion. Scattered coronary calcifications. Osseous and soft tissues: No suspicious osseous lesions. Multilevel degenerative changes of the thoracic spine. DISH. Upper abdomen: No acute abnormality in the visualized upper abdomen. IMPRESSION: Diffuse bronchial wall thickening with bilateral lower lobe mucous plugging and tree-in-bud nodularities. Findings could represent aspiration pneumonia and/or infectious bronchiolitis.
[2025-10-11] MEDS: BUDESONIDE (INHALATION) 0.5 MG/2 ML NEB NEB SCH (19:09)
[2025-10-11] MEDS: ACETYLCYSTEINE 10 %(100MG/ML) SOL 4ML NEB SCH (22:54)
[2025-10-12] VITALS (20 sets, daily range): BP systolic 109–131; BP diastolic 59–74; PULSE 71–99; RESP 14–20; TEMP 97.6–99.2; O2SAT 91–99
[2025-10-12] MEDS: PANTOPRAZOLE 40 MG TAB PO SCH (05:02)
[2025-10-12 06:11] LABS: Calcium 9.2 mg/dL (8.7-10.4); Chloride 105 mmol/L (98-107); Potassium 4.5 mmol/L (3.5-5.1); Sodium 139 mmol/L (136-145)
[2025-10-12 06:12] LABS: Anion Gap 11 (5-15); Carbon Dioxide 23 mmol/L (20-31)
[2025-10-12 06:17] LABS: BUN/Creatinine Ratio 21.9 (10.0-20.0)
[2025-10-12 06:18] LABS: Magnesium 2.0 mg/dL (1.6-2.6)
[2025-10-12 06:33] LABS: Blood Urea Nitrogen 23 mg/dL (9-23); Glucose 128 mg/dL (74-106)
--- NOTE | 2025-10-12 09:44 | DVHPN2 ---
Subjective Patient has complaints of non productive cough. Reviewed: Care Plan, H&P, Labs, Medications, Previous Orders Changes from previous H/P or p: No Changes General: Per HPI Eyes: No Pain, No Vision change, No Conjunctivae inflammation, No Eyelid inflammation, No Other, No Redness ENT: No Ear pain, No Ear discharge, No Nose pain, No Nose discharge, No Nose congestion, No Mouth pain, No Mouth swelling, No Throat pain, No Throat swelling, No Other Cardiovascular: No Chest Pain, No Palpitations, No Orthopnea, No Paroxysmal Noc. Dyspnea, No Edema, No Lt Headedness, No Other Respiratory: Cough; No Dry; Shortness of breath; No SOB with excertion, No Wheezing, No Hemoptysis, No Pleuritic Pain, No Sputum, No Other Gastrointestinal: No Nausea, No Vomiting, No Abdominal Pain, No Diarrhea, No Constipation, No Melena, No Hematochezia, No Other Genitourinary: No Dysuria, No Frequency, No Incontinence, No Hematuria, No Retention, No Other Musculoskeletal: No other, No neck pain, No shoulder pain, No arm pain, No back pain, No hand pain, No leg pain, No foot pain Skin: No Rash, No Lesions, No Jaundice, No Bruising, No Other Objective Vitals Vital Signs Date Time Temp Pulse Resp B/P (MAP) Pulse Ox O2 Delivery O2 Flow Rate FiO2 10/12/25 09:00 98.6 91 18 123/66 (85) 94 98.6 10/12/25 05:49 Room Air* 0 21 Intake/Output Intake and Output 10/12/25 07:00 Intake Total 700 ml Balance 700 ml Intake Oral 650 ml IV Total 50 ml # Voids 3 # Bowel Movements 1 General Appearance: Alert, Oriented X3, Cooperative, mild distress HEENT: Atraumatic, PERRLA Lungs: Other (Bilateral rhonchi) Cardiovascular: Normal S1, Normal S2 Abdomen: Normal bowel sounds, Soft, No tenderness, No hepatospenomegaly Musculoskeletal: Normal sensory function, Normal motor function Extremities: No clubbing, No cyanosis, No edema, Normal pulses, No tenderness/swelling Neuro: Normal gait, Normal speech Skin: Dry, Intact Psych/Mental Status: Mental status NL, Mood NL Medications Current Medications Medications Dose Ordered Sig/Boni Route Start Time Stop Time Status Last Admin Dose Admin Methylprednisolone Sodium Succinate 40 mg BID IV 10/10/25 22:00 10/11/25 22:40 40 MG Sodium Chloride 10 ml Q8HR IV 10/10/25 14:00 10/12/25 05:02 10 ML Acetaminophen/ Hydrocodone Bitart 1 tab Q4HP PRN PO 10/10/25 10:30 Ondansetron HCl 4 mg Q4HP PRN IV 10/10/25 10:30 Docusate Sodium 100 mg BIDPRN PRN PO 10/10/25 10:30 Acetaminophen 650 mg Q6HP PRN PO 10/10/25 10:30 Nitroglycerin 0.4 mg Q5MINP PRN SL 10/10/25 11:30 Morphine Sulfate 2 mg Q30M PRN IV 10/10/25 12:45 Albuterol 2.5 mg Q4HR NEB 10/11/25 14:00 10/12/25 05:48 2.5 MG Ipratropium [place] 0.5 mg Q4H NEB 10/11/25 14:00 10/12/25 05:48 0.5 MG Acetylcysteine 100 mg Q8HR NEB 10/11/25 22:00 10/12/25 05:49 100 MG Pantoprazole Sodium 40 mg DAILY@0600 PO 10/12/25 06:00 10/12/25 05:02 40 MG Budesonide 0.5 mg BID NEB 10/11/25 22:00 10/11/25 19:09 0.5 MG Guaifenesin/ Dextromethorphan 10 ml Q4HP PRN PO 10/11/25 15:15 Ceftriaxone Sodium 50 ml @ 100 mls/hr DAILY@09 IV 10/11/25 15:15 10/11/25 16:11 100 MLS/HR Azithromycin 250 ml @ 125 mls/hr DAILY IV 10/12/25 10:00 Laboratory Results Laboratory Tests 10/11/25 05:44 10/12/25 05:32 Chemistry Test 10/12/25 05:32 Calcium Level 9.2 mg/dL (8.7-10.4) Magnesium Level 2.0 mg/dL (1.6-2.6) Urinalysis Test 10/10/25 12:00 Urine Color Light-yellow (Yellow) Urine Clarity Clear (Clear) Urine pH 5.0 (5.0-9.0) Urine Specific [place] 1.015 (1.001-1.035) Urine Protein Negative (Negative) Urine Ketones 1+ (Negative) H Urine Blood Negative /uL (Negative) Urine Nitrite Negative (Negative) Urine Bilirubin Negative (Negative) Urine Urobilinogen Normal mg/dL (Negative) Urine Leukocyte Esterase Negative /uL (Negative) Urine RBC None seen /hpf (0 - 3) Urine Microscopic WBC < 1 /HPF (0-3) Urine Squamous Epithelial Cells None seen /hpf (<5) Urine Bacteria None seen /hpf (None Seen) Urine Mucus Few (None Seen) Urine Glucose Normal mg/dL (Normal) Microbiology Microbiology Date/Time Source Procedure Growth Status 10/10/25 18:57 Nose MRSA Screen - Final Complete Labs and/or images reviewed: Labs reviewed by me, Image(s) reviewed by me Assessment/Plan Assessment/Plan Impression: -acute hypoxic respiratory failure -probable COPD with exacerbation -probable Gram-positive/Gram-negative etiology -primary hypertension -dyslipidemia -rule out cervical spine stenosis Plan: -Continue antibiotic therapy with Rocephin and azithromycin -Continue q.4 hour bronchodilators with DuoNeb, Pulmicort b.i.d., and Mucomyst q.8 hours -Continue antitussives with guaifenesin DM -Sputum culture -PPI -repeat labs in a.m. Total time spent with patient discussing and formulating plan of care: 35 minutes. Plan discussed with: Patient, Other (RN) Date of Service: Oct 12, 2025 Billing Provider: FABIOLA MORENO NP Common Visit Codes: [id number] INP/OBS CARE(HIGH) SOHEILA MACKEY STUDENT [employer] TEAM LEADER Oct 12, 2025 09:44
--- NOTE | 2025-10-12 12:56 | DVHPN2 ---
Subjective Patient continues to report having productive cough and shortness of breath. Reviewed: Care Plan, H&P, Labs, Medications, Previous Orders Changes from previous H/P or p: No Changes General: Per HPI Eyes: No Pain, No Vision change, No Conjunctivae inflammation, No Eyelid inflammation, No Other, No Redness ENT: No Ear pain, No Ear discharge, No Nose pain, No Nose discharge, No Nose congestion, No Mouth pain, No Mouth swelling, No Throat pain, No Throat swelling, No Other Cardiovascular: No Chest Pain, No Palpitations, No Orthopnea, No Paroxysmal Noc. Dyspnea, No Edema, No Lt Headedness, No Other Respiratory: Cough; No Dry; Shortness of breath; No SOB with excertion, No Wheezing, No Hemoptysis, No Pleuritic Pain, No Sputum, No Other Gastrointestinal: No Nausea, No Vomiting, No Abdominal Pain, No Diarrhea, No Constipation, No Melena, No Hematochezia, No Other Genitourinary: No Dysuria, No Frequency, No Incontinence, No Hematuria, No Retention, No Other Musculoskeletal: No other, No neck pain, No shoulder pain, No arm pain, No back pain, No hand pain, No leg pain, No foot pain Skin: No Rash, No Lesions, No Jaundice, No Bruising, No Other Objective Vitals Vital Signs Date Time Temp Pulse Resp B/P (MAP) Pulse Ox O2 Delivery O2 Flow Rate FiO2 10/12/25 12:32 97.6 82 19 111/59 (76) 93 97.6 10/12/25 10:25 Room Air* 0 21 Intake/Output Intake and Output 10/12/25 07:00 Intake Total 700 ml Balance 700 ml Intake Oral 650 ml IV Total 50 ml # Voids 3 # Bowel Movements 1 General Appearance: Alert, Oriented X3, Cooperative, mild distress HEENT: Atraumatic, PERRLA Lungs: Other (Bilateral rhonchi) Cardiovascular: Normal S1, Normal S2 Abdomen: Normal bowel sounds, Soft, No tenderness, No hepatospenomegaly Musculoskeletal: Normal sensory function, Normal motor function Extremities: No clubbing, No cyanosis, No edema, Normal pulses, No tenderness/swelling Neuro: Normal gait, Normal speech, Cranial nerves 3-12 NL Skin: Dry, Intact Psych/Mental Status: Mental status NL, Mood NL Medications Current Medications Medications Dose Ordered Sig/Boni Route Start Time Stop Time Status Last Admin Dose Admin Methylprednisolone Sodium Succinate 40 mg BID IV 10/10/25 22:00 10/12/25 10:19 40 MG Sodium Chloride 10 ml Q8HR IV 10/10/25 14:00 10/12/25 05:02 10 ML Acetaminophen/ Hydrocodone Bitart 1 tab Q4HP PRN PO 10/10/25 10:30 Ondansetron HCl 4 mg Q4HP PRN IV 10/10/25 10:30 Docusate Sodium 100 mg BIDPRN PRN PO 10/10/25 10:30 Acetaminophen 650 mg Q6HP PRN PO 10/10/25 10:30 Nitroglycerin 0.4 mg Q5MINP PRN SL 10/10/25 11:30 Morphine Sulfate 2 mg Q30M PRN IV 10/10/25 12:45 Albuterol 2.5 mg Q4HR NEB 10/11/25 14:00 10/12/25 10:25 2.5 MG Ipratropium [place] 0.5 mg Q4H NEB 10/11/25 14:00 10/12/25 10:25 0.5 MG Acetylcysteine 100 mg Q8HR NEB 10/11/25 22:00 10/12/25 05:49 100 MG Pantoprazole Sodium 40 mg DAILY@0600 PO 10/12/25 06:00 10/12/25 05:02 40 MG Budesonide 0.5 mg BID NEB 10/11/25 22:00 10/12/25 10:25 0.5 MG Guaifenesin/ Dextromethorphan 10 ml Q4HP PRN PO 10/11/25 15:15 Ceftriaxone Sodium 50 ml @ 100 mls/hr DAILY@09 IV 10/11/25 15:15 10/12/25 10:19 100 MLS/HR Azithromycin 250 ml @ 125 mls/hr DAILY IV 10/12/25 10:00 Laboratory Results Laboratory Tests 10/11/25 05:44 10/12/25 05:32 Chemistry Test 10/12/25 05:32 Calcium Level 9.2 mg/dL (8.7-10.4) Magnesium Level 2.0 mg/dL (1.6-2.6) Urinalysis Test 10/10/25 12:00 Urine Color Light-yellow (Yellow) Urine Clarity Clear (Clear) Urine pH 5.0 (5.0-9.0) Urine Specific [place] 1.015 (1.001-1.035) Urine Protein Negative (Negative) Urine Ketones 1+ (Negative) H Urine Blood Negative /uL (Negative) Urine Nitrite Negative (Negative) Urine Bilirubin Negative (Negative) Urine Urobilinogen Normal mg/dL (Negative) Urine Leukocyte Esterase Negative /uL (Negative) Urine RBC None seen /hpf (0 - 3) Urine Microscopic WBC < 1 /HPF (0-3) Urine Squamous Epithelial Cells None seen /hpf (<5) Urine Bacteria None seen /hpf (None Seen) Urine Mucus Few (None Seen) Urine Glucose Normal mg/dL (Normal) Microbiology Microbiology Date/Time Source Procedure Growth Status 10/10/25 18:57 Nose MRSA Screen - Final Complete Labs and/or images reviewed: Labs reviewed by me, Image(s) reviewed by me Assessment/Plan Assessment/Plan Impression: -acute hypoxic respiratory failure -probable COPD with exacerbation -probable Gram-positive/Gram-negative etiology -primary hypertension -dyslipidemia -rule out cervical spine stenosis Plan: Events: CT scan of the chest reveals bibasilar pneumonia. CT cervical spine unremarkable -start antibiotic therapy with Rocephin and azithromycin -q.4 hour bronchodilators with DuoNeb. Add Pulmicort b.i.d.. Mucomyst q.8 hours with the area of the treatment -start antitussives with guaifenesin DM -sputum culture -PPI -repeat labs in a.m. Total time spent with patient discussing and formulating plan of care: 35 minutes. This medical document was created using an electronic medical record system with [employer] dictation system. Although this document has been carefully reviewed, there may still be some phonetic and typographical errors. These areas are purely typographical due to imperfections of the software programs, and do not reflect any compromise in the patient's medical care. Plan discussed with: Patient, Other (RN) My Orders Orders - FABIOLA MORENO OPERATIONS PLANNER Procedure Category Date Status Time Albuterol Medneb PHA 10/11/25 In Process (Ventolin Medneb) 14:00 Ipratropium Medneb PHA 10/11/25 In Process (Atrovent Medneb) 14:00 Acetylcysteine PHA 10/11/25 In Process Inhalation 10% 22:00 Pantoprazole Tablet PHA 10/12/25 In Process (Protonix Tablet) 06:00 Budesonide PHA 10/11/25 In Process (Inhalation) 22:[address] 10/11/25 Resulted 15:[address] 10/11/25 Resulted Contrast 15:07 Guaifenesin-Dextromet PHA 10/11/25 In Process Liquid (Robitussin 15:15 Ceftriaxone 1gm/50ml PHA 10/11/25 In Process (Rocephin) 15:15 Azithromycin PHA 10/12/25 In Process 500mg/250ml 10:00 Complete Blood Count LAB 10/13/25 Verified 04:00 Basic Metabolic Panel LAB 10/13/25 Verified 04:00 Date of Service: Oct 12, 2025 Billing Provider: FABIOLA MORENO NP Common Visit Codes: [id number] INP/OBS CARE(HIGH) FABIOLA MORENO NP Oct 12, 2025 12:56
[2025-10-12] MEDS: AZITHROMYCIN 500MG/250ML 250 ML IV SCH (14:08)
[2025-10-13] VITALS (20 sets, daily range): BP systolic 106–123; BP diastolic 63–75; PULSE 70–98; RESP 16–19; TEMP 97.4–98.5; O2SAT 90–100
[2025-10-13 05:59] LABS: Hematocrit 37.6 % (41.0-53.0); Hemoglobin 13.1 g/dL (13.5-17.5); Mean Corpuscular Hemoglobin 31.8 pg (28.0-32.0); Mean Corpuscular Volume 91.1 fL (80.0-100.0); Nucleated Red Blood Cells % 0.2 %
[2025-10-13 06:11] LABS: Anion Gap 9 (5-15); Carbon Dioxide 27 mmol/L (20-31); Chloride 103 mmol/L (98-107); Potassium 4.3 mmol/L (3.5-5.1); Sodium 139 mmol/L (136-145)
[2025-10-13 06:12] LABS: Calcium 9.1 mg/dL (8.7-10.4)
[2025-10-13 06:17] LABS: BUN/Creatinine Ratio 23.5 (10.0-20.0); Blood Urea Nitrogen 23 mg/dL (9-23); Glucose 99 mg/dL (74-106)
--- NOTE | 2025-10-13 08:58 | DVHPN2 ---
Reviewed: Care Plan, H&P, Labs, Medications, Previous Orders Changes from previous H/P or p: No Changes General: Per HPI Eyes: No Pain, No Vision change, No Conjunctivae inflammation, No Eyelid inflammation, No Other, No Redness ENT: No Ear pain, No Ear discharge, No Nose pain, No Nose discharge, No Nose congestion, No Mouth pain, No Mouth swelling, No Throat pain, No Throat swelling, No Other Cardiovascular: No Chest Pain, No Palpitations, No Orthopnea, No Paroxysmal Noc. Dyspnea, No Edema, No Lt Headedness, No Other Respiratory: Cough; No Dry; Shortness of breath; No SOB with excertion, No Wheezing, No Hemoptysis, No Pleuritic Pain, No Sputum, No Other Gastrointestinal: No Nausea, No Vomiting, No Abdominal Pain, No Diarrhea, No Constipation, No Melena, No Hematochezia, No Other Genitourinary: No Dysuria, No Frequency, No Incontinence, No Hematuria, No Retention, No Other Musculoskeletal: No other, No neck pain, No shoulder pain, No arm pain, No back pain, No hand pain, No leg pain, No foot pain Skin: No Rash, No Lesions, No Jaundice, No Bruising, No Other Objective Vitals Vital Signs Date Time Temp Pulse Resp B/P (MAP) Pulse Ox O2 Delivery O2 Flow Rate FiO2 10/13/25 08:44 97.4 76 18 121/70 (87) 90 97.4 10/13/25 06:02 Room Air* 0 21 Intake/Output Intake and Output 10/13/25 07:00 Intake Total 2000 ml Balance 2000 ml Intake Oral 1700 ml IV Total 300 ml # Voids 6 # Bowel Movements 5 General Appearance: Alert, Oriented X3, Cooperative, mild distress HEENT: Atraumatic, PERRLA Lungs: Other (Bilateral rhonchi) Cardiovascular: Normal S1, Normal S2 Abdomen: Normal bowel sounds, Soft, No tenderness, No hepatospenomegaly Musculoskeletal: Normal sensory function, Normal motor function Extremities: No clubbing, No cyanosis, No edema, Normal pulses, No tenderness/swelling Neuro: Normal gait, Normal speech Skin: Dry, Intact Psych/Mental Status: Mental status NL, Mood NL Medications Current Medications Medications Dose Ordered Sig/Boni Route Start Time Stop Time Status Last Admin Dose Admin Methylprednisolone Sodium Succinate 40 mg BID IV 10/10/25 22:00 10/12/25 21:13 40 MG Sodium Chloride 10 ml Q8HR IV 10/10/25 14:00 10/13/25 05:29 10 ML Acetaminophen/ Hydrocodone Bitart 1 tab Q4HP PRN PO 10/10/25 10:30 Ondansetron HCl 4 mg Q4HP PRN IV 10/10/25 10:30 Docusate Sodium 100 mg BIDPRN PRN PO 10/10/25 10:30 Acetaminophen 650 mg Q6HP PRN PO 10/10/25 10:30 Nitroglycerin 0.4 mg Q5MINP PRN SL 10/10/25 11:30 Morphine Sulfate 2 mg Q30M PRN IV 10/10/25 12:45 Albuterol 2.5 mg Q4HR NEB 10/11/25 14:00 10/13/25 06:01 2.5 MG Ipratropium [place] 0.5 mg Q4H NEB 10/11/25 14:00 10/13/25 06:01 0.5 MG Acetylcysteine 100 mg Q8HR NEB 10/11/25 22:00 10/13/25 06:02 100 MG Pantoprazole Sodium 40 mg DAILY@0600 PO 10/12/25 06:00 10/13/25 05:29 40 MG Budesonide 0.5 mg BID NEB 10/11/25 22:00 10/13/25 06:01 0.5 MG Guaifenesin/ Dextromethorphan 10 ml Q4HP PRN PO 10/11/25 15:15 Ceftriaxone Sodium 50 ml @ 100 mls/hr DAILY@09 IV 10/11/25 15:15 10/12/25 10:19 100 MLS/HR Azithromycin 250 ml @ 125 mls/hr DAILY IV 10/12/25 10:00 10/12/25 14:08 125 MLS/HR Laboratory Results Laboratory Tests 10/13/25 05:43 Chemistry Test 10/13/25 05:43 Calcium Level 9.1 mg/dL (8.7-10.4) Urinalysis Test 10/10/25 12:00 Urine Color Light-yellow (Yellow) Urine Clarity Clear (Clear) Urine pH 5.0 (5.0-9.0) Urine Specific [place] 1.015 (1.001-1.035) Urine Protein Negative (Negative) Urine Ketones 1+ (Negative) H Urine Blood Negative /uL (Negative) Urine Nitrite Negative (Negative) Urine Bilirubin Negative (Negative) Urine Urobilinogen Normal mg/dL (Negative) Urine Leukocyte Esterase Negative /uL (Negative) Urine RBC None seen /hpf (0 - 3) Urine Microscopic WBC < 1 /HPF (0-3) Urine Squamous Epithelial Cells None seen /hpf (<5) Urine Bacteria None seen /hpf (None Seen) Urine Mucus Few (None Seen) Urine Glucose Normal mg/dL (Normal) Microbiology Microbiology Date/Time Source Procedure Growth Status 10/10/25 18:57 Nose MRSA Screen - Final Complete Labs and/or images reviewed: Labs reviewed by me, Image(s) reviewed by me Assessment/Plan Assessment/Plan Impression: -acute hypoxic respiratory failure -probable COPD with exacerbation -probable Gram-positive/Gram-negative etiology -primary hypertension -dyslipidemia -rule out cervical spine stenosis Plan: -patient no longer on oxygen. placed on room air. -Continue antibiotic therapy with Rocephin and azithromycin -Continue q.4 hour bronchodilators with DuoNeb, Pulmicort b.i.d., and Mucomyst q.8 hours -Continue antitussives with guaifenesin DM -Sputum culture -PPI -repeat labs in a.m. -discharge planning for tomorrow. Total time spent with patient discussing and formulating plan of care: 35 minutes. Plan discussed with: Patient, Other (RN) Date of Service: Oct 13, 2025 Billing Provider: FABIOLA MORENO NP Common Visit Codes: [id number] INP/OBS CARE(HIGH) SOHEILA MACKEY [employer]UDENT [employer] WORKER Oct 13, 2025 08:58
[2025-10-13] MEDS ORDERED: ALBUAER3 IN (13:38)
[2025-10-13] MEDS ORDERED: DOXY100C79 PO (13:38)
[2025-10-13] MEDS ORDERED: ALBU0.636 IN (13:38)
--- NOTE | 2025-10-13 13:40 | DVHPN2 ---
Subjective Patient reports improvement with shortness of breaths and cough. Reviewed: Care Plan, H&P, Labs, Medications, Previous Orders Changes from previous H/P or p: No Changes General: Per HPI Eyes: No Pain, No Vision change, No Conjunctivae inflammation, No Eyelid inflammation, No Other, No Redness ENT: No Ear pain, No Ear discharge, No Nose pain, No Nose discharge, No Nose congestion, No Mouth pain, No Mouth swelling, No Throat pain, No Throat swelling, No Other Cardiovascular: No Chest Pain, No Palpitations, No Orthopnea, No Paroxysmal Noc. Dyspnea, No Edema, No Lt Headedness, No Other Respiratory: Cough; No Dry; Shortness of breath; No SOB with excertion, No Wheezing, No Hemoptysis, No Pleuritic Pain, No Sputum, No Other Gastrointestinal: No Nausea, No Vomiting, No Abdominal Pain, No Diarrhea, No Constipation, No Melena, No Hematochezia, No Other Genitourinary: No Dysuria, No Frequency, No Incontinence, No Hematuria, No Retention, No Other Musculoskeletal: No other, No neck pain, No shoulder pain, No arm pain, No back pain, No hand pain, No leg pain, No foot pain Skin: No Rash, No Lesions, No Jaundice, No Bruising, No Other Objective Vitals Vital Signs Date Time Temp Pulse Resp B/P (MAP) Pulse Ox O2 Delivery O2 Flow Rate FiO2 10/13/25 12:04 81 19 121/70 97 2.0 10/13/25 09:35 Nasal Cannula* 28 10/13/25 08:44 97.4 97.4 Intake/Output Intake and Output 10/13/25 07:00 Intake Total 2000 ml Balance 2000 ml Intake Oral 1700 ml IV Total 300 ml # Voids 6 # Bowel Movements 5 General Appearance: Alert, Oriented X3, Cooperative, mild distress HEENT: Atraumatic, PERRLA Lungs: Other (Bilateral rhonchi) Cardiovascular: Normal S1, Normal S2 Abdomen: Normal bowel sounds, Soft, No tenderness, No hepatospenomegaly Musculoskeletal: Normal sensory function, Normal motor function Extremities: No clubbing, No cyanosis, No edema, Normal pulses, No tenderness/swelling Neuro: Normal gait, Normal speech Skin: Dry, Intact Psych/Mental Status: Mental status NL, Mood NL Medications Current Medications Medications Dose Ordered Sig/Boni Route Start Time Stop Time Status Last Admin Dose Admin Methylprednisolone Sodium Succinate 40 mg BID IV 10/10/25 22:00 10/13/25 10:20 40 MG Sodium Chloride 10 ml Q8HR IV 10/10/25 14:00 10/13/25 05:29 10 ML Acetaminophen/ Hydrocodone Bitart 1 tab Q4HP PRN PO 10/10/25 10:30 Ondansetron HCl 4 mg Q4HP PRN IV 10/10/25 10:30 Docusate Sodium 100 mg BIDPRN PRN PO 10/10/25 10:30 Acetaminophen 650 mg Q6HP PRN PO 10/10/25 10:30 Nitroglycerin 0.4 mg Q5MINP PRN SL 10/10/25 11:30 Morphine Sulfate 2 mg Q30M PRN IV 10/10/25 12:45 Albuterol 2.5 mg Q4HR NEB 10/11/25 14:00 10/13/25 09:29 2.5 MG Ipratropium [place] 0.5 mg Q4H NEB 10/11/25 14:00 10/13/25 09:29 0.5 MG Acetylcysteine 100 mg Q8HR NEB 10/11/25 22:00 10/13/25 06:02 100 MG Pantoprazole Sodium 40 mg DAILY@0600 PO 10/12/25 06:00 10/13/25 05:29 40 MG Budesonide 0.5 mg BID NEB 10/11/25 22:00 10/13/25 06:01 0.5 MG Guaifenesin/ Dextromethorphan 10 ml Q4HP PRN PO 10/11/25 15:15 Ceftriaxone Sodium 50 ml @ 100 mls/hr DAILY@09 IV 10/11/25 15:15 10/13/25 10:19 100 MLS/HR Azithromycin 250 ml @ 125 mls/hr DAILY IV 10/12/25 10:00 10/13/25 11:33 125 MLS/HR Laboratory Results Laboratory Tests 10/13/25 05:43 Chemistry Test 10/13/25 05:43 Calcium Level 9.1 mg/dL (8.7-10.4) Urinalysis Test 10/10/25 12:00 Urine Color Light-yellow (Yellow) Urine Clarity Clear (Clear) Urine pH 5.0 (5.0-9.0) Urine Specific [place] 1.015 (1.001-1.035) Urine Protein Negative (Negative) Urine Ketones 1+ (Negative) H Urine Blood Negative /uL (Negative) Urine Nitrite Negative (Negative) Urine Bilirubin Negative (Negative) Urine Urobilinogen Normal mg/dL (Negative) Urine Leukocyte Esterase Negative /uL (Negative) Urine RBC None seen /hpf (0 - 3) Urine Microscopic WBC < 1 /HPF (0-3) Urine Squamous Epithelial Cells None seen /hpf (<5) Urine Bacteria None seen /hpf (None Seen) Urine Mucus Few (None Seen) Urine Glucose Normal mg/dL (Normal) Microbiology Microbiology Date/Time Source Procedure Growth Status 10/10/25 18:57 Nose MRSA Screen - Final Complete Labs and/or images reviewed: Labs reviewed by me, Image(s) reviewed by me Assessment/Plan Assessment/Plan Impression: -acute hypoxic respiratory failure -probable COPD with exacerbation -probable Gram-positive/Gram-negative etiology -primary hypertension -dyslipidemia -rule out cervical spine stenosis Plan: Events: Patient weaned onto room air today. Continues to have wheezing and rhonchi. -start antibiotic therapy with Rocephin and azithromycin -q.4 hour bronchodilators with DuoNeb. Add Pulmicort b.i.d.. Mucomyst q.8 hours with the area of the treatment -start antitussives with guaifenesin DM -PPI -repeat labs in a.m. -reassess for discharge in a.m.. [facility] Total time spent with patient discussing and formulating plan of care: 35 minutes. This medical document was created using an electronic medical record system with [employer] dictation system. Although this document has been carefully reviewed, there may still be some phonetic and typographical errors. These areas are purely typographical due to imperfections of the software programs, and do not reflect any compromise in the patient's medical care. Plan discussed with: Patient, Other (RN) My Orders Orders - FABIOLA MORENO NP Procedure Category Date Status Time Magnesium LAB 10/14/25 Verified 04:00 Basic Metabolic Panel LAB 10/14/25 Verified 04:00 Chest Portable XY 10/14/25 Logged 04:00 Complete Blood Count LAB 10/14/25 Verified 04:00 Date of Service: Oct 13, 2025 Billing Provider: FABIOLA MORENO NP Common Visit Codes: [id number] INP/OBS CARE(HIGH) FABIOLA MORENO NP Oct 13, 2025 13:40
[2025-10-14] VITALS (20 sets, daily range): BP systolic 110–130; BP diastolic 64–86; PULSE 64–97; RESP 16–20; TEMP 97.6–98.4; O2SAT 91–100
--- NOTE | 2025-10-14 06:37 | DVH ---
CHEST RADIOGRAPH Indication: pna Technique: Single frontal view of the chest was obtained COMPARISON: CT CHEST WITHOUT CONTRAST on DOS: 10/11/25, XY CHEST PORTABLE on DOS: 10/10/25 FINDINGS: Lines and Tubes: None Lungs: Clear Pleura: No effusion. No pneumothorax. Cardiomediastinal contours: Unremarkable Bones: Unremarkable IMPRESSION: 1. No acute disease.
[2025-10-14 07:47] LABS: Hematocrit 38.9 % (41.0-53.0); Hemoglobin 13.5 g/dL (13.5-17.5); Mean Corpuscular Hemoglobin 31.9 pg (28.0-32.0); Mean Corpuscular Volume 91.9 fL (80.0-100.0); Nucleated Red Blood Cells % 0.0 %
[2025-10-14 08:54] LABS: Anion Gap 13 (5-15); Calcium 9.1 mg/dL (8.7-10.4); Carbon Dioxide 25 mmol/L (20-31); Chloride 100 mmol/L (98-107); Potassium 4.3 mmol/L (3.5-5.1); Sodium 138 mmol/L (136-145)
[2025-10-14 09:00] LABS: BUN/Creatinine Ratio 25.8 (10.0-20.0); Glucose 103 mg/dL (74-106)
[2025-10-14 09:01] LABS: Blood Urea Nitrogen 24 mg/dL (9-23); Magnesium 2.1 mg/dL (1.6-2.6)
[2025-10-15] VITALS (12 sets, daily range): BP systolic 105–115; BP diastolic 59–73; PULSE 76–96; RESP 14–20; TEMP 36.7; O2SAT 92–99
[2025-10-15] MEDS: DOCUSATE SOD 100 MG CAP PO PRN (02:05)
--- NOTE | 2025-10-15 09:59 | DVHPN2 ---
Reviewed: Care Plan, H&P, Labs, Medications, Previous Orders Changes from previous H/P or p: No Changes General: Per HPI Eyes: No Pain, No Vision change, No Conjunctivae inflammation, No Eyelid inflammation, No Other, No Redness ENT: No Ear pain, No Ear discharge, No Nose pain, No Nose discharge, No Nose congestion, No Mouth pain, No Mouth swelling, No Throat pain, No Throat swelling, No Other Cardiovascular: No Chest Pain, No Palpitations, No Orthopnea, No Paroxysmal Noc. Dyspnea, No Edema, No Lt Headedness, No Other Respiratory: Cough; No Dry; Shortness of breath; No SOB with excertion, No Wheezing, No Hemoptysis, No Pleuritic Pain, No Sputum, No Other Gastrointestinal: No Nausea, No Vomiting, No Abdominal Pain, No Diarrhea, No Constipation, No Melena, No Hematochezia, No Other Genitourinary: No Dysuria, No Frequency, No Incontinence, No Hematuria, No Retention, No Other Musculoskeletal: No other, No neck pain, No shoulder pain, No arm pain, No back pain, No hand pain, No leg pain, No foot pain Skin: No Rash, No Lesions, No Jaundice, No Bruising, No Other Objective Vitals Vital Signs Date Time Temp Pulse Resp B/P (MAP) Pulse Ox O2 Delivery O2 Flow Rate FiO2 10/15/25 08:18 97.9 79 20 109/59 (76) 93 97.9 10/15/25 08:00 Room Air* 0 21 Intake/Output Intake and Output 10/15/25 07:00 Intake Total 1960 ml Output Total 600 ml Balance 1360 ml Intake Oral 1660 ml IV Total 300 ml Output Urine Total 600 ml # Voids 3 General Appearance: Alert, Oriented X3, Cooperative, mild distress HEENT: Atraumatic, PERRLA Lungs: Other (Bilateral rhonchi) Cardiovascular: Normal S1, Normal S2 Abdomen: Normal bowel sounds, Soft, No tenderness, No hepatospenomegaly Musculoskeletal: Normal sensory function, Normal motor function Extremities: No clubbing, No cyanosis, No edema, Normal pulses, No tenderness/swelling Neuro: Normal gait, Normal speech Skin: Dry, Intact Psych/Mental Status: Mental status NL, Mood NL Medications Current Medications Medications Dose Ordered Sig/Boni Route Start Time Stop Time Status Last Admin Dose Admin Methylprednisolone Sodium Succinate 40 mg BID IV 10/10/25 22:00 10/15/25 08:32 40 MG Sodium Chloride 10 ml Q8HR IV 10/10/25 14:00 10/14/25 22:00 10 ML Acetaminophen/ Hydrocodone Bitart 1 tab Q4HP PRN PO 10/10/25 10:30 Ondansetron HCl 4 mg Q4HP PRN IV 10/10/25 10:30 Docusate Sodium 100 mg BIDPRN PRN PO 10/10/25 10:30 10/15/25 02:05 100 MG Acetaminophen 650 mg Q6HP PRN PO 10/10/25 10:30 Nitroglycerin 0.4 mg Q5MINP PRN SL 10/10/25 11:30 Morphine Sulfate 2 mg Q30M PRN IV 10/10/25 12:45 Albuterol 2.5 mg Q4HR NEB 10/11/25 14:00 10/15/25 09:34 2.5 MG Ipratropium [place] 0.5 mg Q4H NEB 10/11/25 14:00 10/15/25 09:34 0.5 MG Acetylcysteine 100 mg Q8HR NEB 10/11/25 22:00 10/15/25 06:32 100 MG Pantoprazole Sodium 40 mg DAILY@0600 PO 10/12/25 06:00 10/15/25 06:12 40 MG Budesonide 0.5 mg BID NEB 10/11/25 22:00 10/15/25 06:32 0.5 MG Guaifenesin/ Dextromethorphan 10 ml Q4HP PRN PO 10/11/25 15:15 Ceftriaxone Sodium 50 ml @ 100 mls/hr DAILY@09 IV 10/11/25 15:15 10/15/25 08:32 100 MLS/HR Azithromycin 250 ml @ 125 mls/hr DAILY IV 10/12/25 10:00 10/15/25 08:32 125 MLS/HR Laboratory Results Laboratory Tests 10/14/25 07:14 Urinalysis Test 10/10/25 12:00 Urine Color Light-yellow (Yellow) Urine Clarity Clear (Clear) Urine pH 5.0 (5.0-9.0) Urine Specific [place] 1.015 (1.001-1.035) Urine Protein Negative (Negative) Urine Ketones 1+ (Negative) H Urine Blood Negative /uL (Negative) Urine Nitrite Negative (Negative) Urine Bilirubin Negative (Negative) Urine Urobilinogen Normal mg/dL (Negative) Urine Leukocyte Esterase Negative /uL (Negative) Urine RBC None seen /hpf (0 - 3) Urine Microscopic WBC < 1 /HPF (0-3) Urine Squamous Epithelial Cells None seen /hpf (<5) Urine Bacteria None seen /hpf (None Seen) Urine Mucus Few (None Seen) Urine Glucose Normal mg/dL (Normal) Microbiology Microbiology Date/Time Source Procedure Growth Status 10/10/25 18:57 Nose MRSA Screen - Final Complete Assessment/Plan Assessment/Plan Impression: -acute hypoxic respiratory failure -probable COPD with exacerbation -probable Gram-positive/Gram-negative etiology -primary hypertension -dyslipidemia -rule out cervical spine stenosis Plan: Events: Patient weaned onto room air today. Continues to have wheezing and rhonchi. -start antibiotic therapy with Rocephin and azithromycin -q.4 hour bronchodilators with DuoNeb. Add Pulmicort b.i.d.. Mucomyst q.8 hours with the area of the treatment -start antitussives with guaifenesin DM -PPI -repeat labs in a.m. Total time spent with patient discussing and formulating plan of care: 35 minutes. Plan discussed with: Patient Date of Service: Oct 14, 2025 Billing Provider: JOHN DENNY DO Common Visit Codes: [id number] INP/OBS CARE(HIGH) JOHN DENNY DO Oct 15, 2025 09:59
--- NOTE | 2025-10-15 11:22 | DVHDS2 ---
Discharge Summary Date of Admission Oct 10, 2025 at 11:25 Date of Discharge: Oct 15, 2025 Labs/Diagnostic Data: Laboratory Results Test 10/14/25 07:14 10/11/25 05:44 10/10/25 15:36 10/10/25 12:00 White Blood Count 10.2 10^3/uL (4.4-10.8) Red Blood Count 4.23 10^6/uL (4.5-5.90) Hemoglobin 13.5 g/dL (13.5-17.5) Hematocrit 38.9 % (41.0-53.0) Mean Corpuscular Volume 91.9 fL (80.0-100.0) Mean Corpuscular Hemoglobin 31.9 pg (28.0-32.0) Mean Corpuscular Hemoglobin Concent 34.7 g/dL (32.0-36.0) Red Cell Distribution Width 14.0 % (11.8-14.3) Platelet Count 205 10^3/uL (140-450) Mean Platelet Volume 7.1 fL (6.9-10.8) Neutrophils (%) (Auto) 78.1 % (37.0-80.0) Lymphocytes (%) (Auto) 12.7 % (10.0-50.0) Monocytes (%) (Auto) 8.8 % (0.0-12.0) Eosinophils (%) (Auto) 0.1 % (0.0-7.0) Basophils (%) (Auto) 0.3 % (0.0-2.0) Neutrophils # (Auto) 7.9 10 ^3/uL (1.6-8.6) Lymphocytes # (Auto) 1.3 10 ^3/uL (0.4-5.4) Monocytes # (Auto) 0.9 10 ^3/uL (0-1.3) Eosinophils # (Auto) 0 10 ^3/uL (0-0.8) Basophils # (Auto) 0 10 ^3/uL (0-0.2) Nucleated Red Blood Cells 0.0 % Sodium Level 138 mmol/L (136-145) Potassium Level 4.3 mmol/L (3.5-5.1) Chloride Level 100 mmol/L (98-107) Carbon Dioxide Level 25 mmol/L (20-31) Anion Gap 13 (5-15) Blood Urea Nitrogen 24 mg/dL (9-23) Creatinine 0.93 mg/dL (0.700-1.30) Glomerular Filtration Rate Calc 79 mL/min (>90) BUN/Creatinine Ratio 25.8 (10.0-20.0) Serum Glucose 103 mg/dL (74-106) Calcium Level 9.1 mg/dL (8.7-10.4) Magnesium Level 2.1 mg/dL (1.6-2.6) Total Bilirubin 0.7 mg/dL (0.2-1.0) Aspartate Amino Transferase (AST) 23 U/L (13-40) Alanine Aminotransferase (ALT) 23 U/L (7-40) Alkaline Phosphatase 74 U/L (46-116) Total Protein 6.5 g/dL (5.7-8.2) Albumin 3.9 g/dL (3.2-4.8) Influenza Type A Antigen Negative (Negative) Influenza Type B Antigen Negative (Negative) SARS-CoV-2 Antigen (Rapid) Negative (NEGATIVE) Urine Color Light-yellow (Yellow) Urine Clarity Clear (Clear) Urine pH 5.0 (5.0-9.0) Urine Specific [place] 1.015 (1.001-1.035) Urine Protein Negative (Negative) Urine Ketones 1+ (Negative) Urine Blood Negative /uL (Negative) Urine Nitrite Negative (Negative) Urine Bilirubin Negative (Negative) Urine Urobilinogen Normal mg/dL (Negative) Urine Leukocyte Esterase Negative /uL (Negative) Urine RBC None seen /hpf (0 - 3) Urine Microscopic WBC < 1 /HPF (0-3) Urine Squamous Epithelial Cells None seen /hpf (<5) Urine Bacteria None seen /hpf (None Seen) Urine Mucus Few (None Seen) Urine Glucose Normal mg/dL (Normal) Test 10/10/25 11:03 10/10/25 08:54 Troponin I High Sensitivity 29 ng/L (</=54) B-Type Natriuretic Peptide 177.83 pg/mL (0-100) Other Laboratory Tests 10/14/25 07:14 Brief Hx & Hospital Course: Impression: -acute hypoxic respiratory failure -probable COPD with exacerbation -probable Gram-positive/Gram-negative etiology -primary hypertension -dyslipidemia -rule out cervical spine stenosis Plan: Events: Patient weaned onto room air today. Continues to have wheezing and rhonchi. -start antibiotic therapy with Rocephin and azithromycin -q.4 hour bronchodilators with DuoNeb. Add Pulmicort b.i.d.. Mucomyst q.8 hours with the area of the treatment -start antitussives with guaifenesin DM -PPI -repeat labs in a.m. Total time spent with patient discussing and formulating plan of care: 35 minutes. discharged to home Condition at Discharge: Good Final Diagnosis/Problems List pna Discharge Disposition: Home Discharge Instruct/Medications Diet: Cardiac 2g Na,low cholest Activity: No Restrictions, As Tolerated Scheduled Atorvastatin Calcium (Atorvastatin Calcium), 1 TAB PO DAILY, (Reported) Doxycycline (Monohydrate) (Doxycycline), 100 MG PO BID Prednisone (Prednisone), 1 TAB PO BID, (Reported) Scheduled PRN Albuterol Sulfate (Albuterol Sulfate), 0.63 MG IN Q4HP PRN Albuterol Sulfate (Ventolin Mdi), 90 MCG IN Q4HP PRN Miscellaneous Medications Albuterol Sulfate (Albuterol Sulfate Hfa), INH, (Reported) Discharge Statement: "Patient was advised to return to the ER or call 911 if any headaches, dizziness, shortness of breath, chest pain, abdominal pain, bleeding, fevers, or worsening of medical condition. Patient was counseled about treatment plan, medications, possible side effects, patientverbalized understanding. All questions were answered to the best of my ability. This discharge took greater then 30 minutes in planning, reviewing documentation, counseling the patient, and discussing with other team members." ASSESSMENT ASSESSMENT Assessment Date of Service: Oct 15, 2025 Billing Provider: JOHN DENNY DO Common Visit Codes: [id number] DISCH DAY >30min JOHN DENNY DO Oct 15, 2025 11:22
== END 2025-10-15 15:30 | disposition home or self-care (01) | DRG 177 ==
LOC: EDBD 08:08 → ER 08:08 → MERGE 11:25 → OVERFLOW 11:25 → TELE-EAST 18:58
PROVIDERS: ADMIT Nurse Practitioner Acute Care; ATTEND Nurse Practitioner Acute Care
DX: J15.69 Pneumonia due to other Gram-negative bacteria (principal); J96.01 Acute respiratory failure with hypoxia; J15.9 Unspecified bacterial pneumonia; J44.1 Chronic obstructive pulmonary disease with (acute) exacerbation; I10 Essential (primary) hypertension; Z20.822 Contact with and (suspected) exposure to COVID-19; E78.5 Hyperlipidemia, unspecified; M48.02 Spinal stenosis, cervical region; J98.4 Other disorders of lung
CPT/HCPCS: 36415; 71045; 71250; 72125; 80048; 80053; 81001; 83735; 83880; 84484; 85025; 87081; 87426; 87804; 93005; 94640; 99291; 99292; G0378; J3490

== ENCOUNTER 2025-10-15 21:55 | Inpatient (IN) | payer OTHER ==
[~2025-10-15] VITALS: Ht 177.8 cm; Wt 152.9 kg
[~2025-10-15 21:55] MED LIST: ALBU0.636 IN; ALBU108A5 INH; ALBUAER3 IN; ATOR20TA50 PO; DOXY100C79 PO; PRED20TA2 PO
[2025-10-15 23:23] LABS: Hematocrit 42.7 % (41.0-53.0); Hemoglobin 14.7 g/dL (13.5-17.5); Mean Corpuscular Hemoglobin 31.5 pg (28.0-32.0); Mean Corpuscular Volume 91.6 fL (80.0-100.0); Nucleated Red Blood Cells % 0.0 %
[2025-10-15 23:25] LABS: Chloride 100 mmol/L (98-107); Potassium 5.0 mmol/L (3.5-5.1); Sodium 139 mmol/L (136-145)
[2025-10-15 23:26] LABS: Anion Gap 11 (5-15); Calcium 9.2 mg/dL (8.7-10.4); Carbon Dioxide 28 mmol/L (20-31)
[2025-10-15 23:31] LABS: BUN/Creatinine Ratio 31.3 (10.0-20.0); Glucose 97 mg/dL (74-106)
[2025-10-15 23:33] LABS: Blood Urea Nitrogen 31 mg/dL (9-23)
--- NOTE | 2025-10-15 23:33 | ED.PDOC ---
History of Present Illness HPI Comments 85-year-old, wheelchair-bound male presents with son with chief complaint of shortness of breath and hallucinations. Patient reports onset of symptoms after returning home and laying in his bed to go to sleep at around 5:00 p.m., today. No relief or improvement of her dyspnea with described inhaler and nebulizer use. He comments on recent [facility] hospital admission discharge at 3:00 p.m., this afternoon for acute respiratory distress and suspects on still having pneumonia. Patient denies having any chest pain, cough, congestion, fever, or further acute symptoms. Chief Complaint: Shortness of Breath Time Seen by MD: 22:45 Reviewed Notes: Nurses Notes, Medications, Allergies Allergies: Coded Allergies: NO KNOWN ALLERGIES (Unverified , 10/10/25) Home Meds Active Scripts Doxycycline (Monohydrate) (Doxycycline) 100 Mg Cap, 100 MG PO BID for 7 Days, #14 CAP Prov:FABIOLA MORENO TRACK MACHINE OPERATOR REPAIRER 10/13/25 Albuterol Sulfate (VENTOLIN MDI) 90 Mcg Ih, 90 MCG IN Q4HP PRN for 30 Days, #1 INH Prov:FABIOLA MORENO TRACK MACHINE OPERATOR REPAIRER 10/13/25 Albuterol Sulfate (Albuterol Sulfate) 0.63 Mg/3 Ml Neb, 0.63 MG IN Q4HP PRN for 30 Days, #30 INH Prov:FABIOLA MORENO TRACK MACHINE OPERATOR REPAIRER 10/13/25 Reported Medications Prednisone (Prednisone) 20 Mg Tab, 1 TAB PO BID 10/10/25 Albuterol Sulfate (Albuterol Sulfate Hfa) 108 Mcg/Act Aer, INH 10/10/25 Atorvastatin Calcium (ATORVASTATIN CALCIUM) 20 Mg Tab, 1 TAB PO DAILY 10/10/25 Information Source: Patient, Relative (Child) Mode of Arrival: Ambulatory Severity: Moderate Timing: Hours Duration: Since onset Prehospital treatment: Breathing Tx Past Medical History PAST MEDICAL HISTORY: COPD, High Lipids, HTN Past Medical History (Other): Pneumonia Respiratory distress Surgical History: Denies all surgeries Family History Family History: Reviewed,noncontributory to illness, No family hx of Cancer, No family hx of DM, No family hx of Heart dayami, No family hx of HTN, No family hx ofKidney dayami, No family hx of Liver dayami, No family hx of Lung dayami, No family hx of Stroke Social History Smoker: Non-Smoker Alcohol: Denies ETOH Use Drugs: Denies Drug Use Lives In: Home All Other Systems: Reviewed and Negative (Comprehensive review of systems are negative unless stated in HPI) Physical Exam General Appearance: No Apparent Distress, Normal HEENT: Normal ENT Inspection, Pharynx Normal, TMs Normal Neck: Full Range of Motion, Non-Tender, Normal, Normal Inspection Respiratory: Chest Non-Tender, Lungs Clear, No Accessory Muscle Use, No Respiratory Distress, Normal Breath Sounds Cardiovascular: No Edema, No JVD, No Murmur, No Gallop, Normal Peripheral Pulses, Regular Rate/Rhythm Breast Exam: Deferred Gastrointestinal: No Organomegaly, Non Tender, No Pulsatile Mass, Normal Bowel Sounds, Soft Genitalia: Deferred Pelvic: Deferred Rectal: Deferred Extremities: No calf tenderness, Normal capillary refill, Normal inspection, Normal range of motion, Non-tender, No pedal edema Musculoskeletal : Apperance: Normal Neurologic: Alert, consignee II-XII nml as Tested, No Motor Deficits, Normal Affect, Normal Mood, No Sensory Deficits Cerebellar Function: Normal Reflexes: Normal Skin: Dry, Normal Color, Warm Lymphatic: No Adenopathy Was a procedure done? Was a procedure done?: No Differential Dx Considerations may include: Acute COPD exacerbation, URI, pneumonia, MN, PE, viral syndrome, among others X-Ray, Labs, Meds, VS Vital Signs Date Time Temp Pulse Resp B/P (MAP) Pulse Ox O2 Delivery O2 Flow Rate FiO2 10/16/25 01:37 19 94 Room Air* 0 21 10/16/25 01:35 98.0 70 19 123/64 (83) 94 98.0 10/15/25 22:00 97.5 94 20 121/72 96 97.5 Lab Test 10/16/25 01:13 10/16/25 00:42 10/15/25 23:00 Range/Units Lactic Acid Level Pending Troponin I High Sensitivity Pending 38 38 </=54 ng/L White Blood Count 12.7 H 4.4-10.8 10^3/uL Red Blood Count 4.66 4.5-5.90 10^6/uL Hemoglobin 14.7 13.5-17.5 g/dL Hematocrit 42.7 41.0-53.0 % Mean Corpuscular Volume 91.6 80.0-100.0 fL Mean Corpuscular Hemoglobin 31.5 28.0-32.0 pg Mean Corpuscular Hemoglobin Concent 34.4 32.0-36.0 g/dL Red Cell Distribution Width 14.0 11.8-14.3 % Platelet Count 271 140-450 10^3/uL Mean Platelet Volume 6.8 L 6.9-10.8 fL Neutrophils (%) (Auto) 77.1 37.0-80.0 % Lymphocytes (%) (Auto) 11.7 10.0-50.0 % Monocytes (%) (Auto) 11.0 0.0-12.0 % Eosinophils (%) (Auto) 0.1 0.0-7.0 % Basophils (%) (Auto) 0.1 0.0-2.0 % Neutrophils # (Auto) 9.8 H 1.6-8.6 10 ^3/uL Lymphocytes # (Auto) 1.5 0.4-5.4 10 ^3/uL Monocytes # (Auto) 1.4 H 0-1.3 10 ^3/uL Eosinophils # (Auto) 0 0-0.8 10 ^3/uL Basophils # (Auto) 0 0-0.2 10 ^3/uL Nucleated Red Blood Cells 0.0 % Sodium Level 139 136-145 mmol/L Potassium Level 5.0 3.5-5.1 mmol/L Chloride Level 100 98-107 mmol/L Carbon Dioxide Level 28 20-31 mmol/L Anion Gap 11 5-15 Blood Urea Nitrogen 31 H 9-23 mg/dL Creatinine 0.99 0.700-1.30 mg/dL Glomerular Filtration Rate Calc 74 >90 mL/min BUN/Creatinine Ratio 31.3 H 10.0-20.0 Serum Glucose 97 74-106 mg/dL Calcium Level 9.2 8.7-10.4 mg/dL Current Medications Medications (Trade) Dose Ordered Sig/Boni Route Start Time Stop Time Status Last Admin Lactated Ringer's 2,200 ml @ 2,200 mls/hr ONCE ONCE IV 10/16/25 01:00 10/16/25 01:59 10/16/25 01:38 Cefepime HCl 50 ml @ 50 mls/hr ONCE ONCE IV 10/16/25 01:45 10/16/25 02:44 10/16/25 01:43 Time of 1ST Reevaluation: 23:15 Reevaluation 1ST: Unchanged Patient Education/Counseling: Diagnosis, Treatment, Other (Need for admission) Family Education/Counseling: Diagnosis, Treatment, Other (Need for admission) Comments THIS IS A PATIENT WHO WAS JUST DISCHARGED TODAY FOR PNEUMONIA. HE PRESENTS BACK TO THE EMERGENCY ROOM REPORTING HE WAS FEELING DELUSIONAL AND HAVING INCREASING SHORTNESS OF BREATH. PATIENT DOES MEET SEPSIS CRITERIA WITH HEART RATE GREATER THAN 90 AND WBC COUNT MORE THAN 12. HOWEVER CHEST X-RAY WAS CLEAR THIS TIME. AND PATIENT WAS JUST ON ANTIBIOTIC AND DISCHARGED. HOWEVER I WILL INITIATE THE SEPSIS PROTOCOL DESPITE OF HIS RECENT ADMISSION WITH ANTIBIOTIC USE LIKELY PRECLUDES HIM FROM THE SEPSIS ALTHOUGH RHYTHM Additional Information Previous visits reviewed: October 10, 2025 encounter for acute respiratory distress Labs ordered: EKG, troponin, BMP, CBC Images reviewed: Chest x-ray Additional historian is interviewed: Jose SEPSIS Sepsis Screen Date sepsis recognized/suspect: Oct 15, 2025 Time Sepsis recognized/suspect: 2204 Recent Procedure: No On Antibiotic Therapy: Yes Respiratory Rate >20: No Heart Rate >90: Yes Temp<36 C (96.8 F) or >38.3 C: No SBP <90 or MAP <65 mmHG: No New Acute Mental Status Change: No Is the patient on CPAP, BIPAP,: No Physician Orders Chest Portable (10/15/25 22:53) Electrocardigram (10/15/25 22:53) Troponin-I Hs (10/16/25 01:53) Electrocardigram (10/15/25 23:53) Electrocardigram (10/16/25 01:53) Urinalysis (10/16/25 00:46) Accucheck (10/16/25 00:46) Lactated Ringer's (10/16/25 01:00) Blood Culture (10/16/25 00:46) Vancomycin 1gm/250ml Kit (10/16/25 01:00) Lactic Acid W/ Reflex Order (10/16/25 02:00) Notify Md If Map <65 Or Bp<90 (10/16/25 00:46) If Map<65 Start Vasopressor (10/16/25 00:46) Sepsis Reassesment After Fluid (10/16/25 01:46) Rapid Influenza A&B (10/16/25 00:46) Covid19 Antigen Karli (10/16/25 ) Cefepime 1gm/50ml (Maxipime 1gm/50ml) (10/16/25 01:45) Vital Signs Date Time Temp Pulse Resp B/P (MAP) Pulse Ox O2 Delivery O2 Flow Rate FiO2 10/16/25 01:37 19 94 Room Air* 0 21 10/16/25 01:35 98.0 70 19 123/64 (83) 94 98.0 10/15/25 22:00 97.5 94 20 121/72 96 97.5 Laboratory Tests Test 10/15/25 23:00 10/16/25 01:13 White Blood Count 12.7 10^3/uL (4.4-10.8) H Lactic Acid Level Pending Medications Medications Dose Ordered Sig/Boni Route Start Time Stop Time Status Last Admin Dose Admin Cefepime HCl 50 ml @ 50 mls/hr ONCE ONCE IV 10/16/25 01:45 10/16/25 02:44 10/16/25 01:43 Lactated Ringer's 2,200 ml @ 2,200 mls/hr ONCE ONCE IV 10/16/25 01:00 10/16/25 01:59 10/16/25 01:38 Reassessment Post Fluid SEPSIS FOCUS EXAM(REASSESSMENT pt is improved. HR down to 70 after 2200LR given Date of Reassessment: Oct 16, 2025 Time of Reassessment: 01:45 Temperature: 98 Systolic BP: 160 Blood Pressure Time: 01:35 Respiration: 19 Oxygen Saturation: 98 Pulse rate: 70 Pulse Location: Radial Pulse Strength: Normal Capillary Refill Exam: < 3 seconds Skin Temperature: Warm Skin Color: WNL Fingernail Color: WNL Departure 1 Departure Time of Disposition: 01:47 Impression: Primary Impression: Sepsis Disposition: 09 ADMITTED INPATIENT Admit to: [facility] Condition: Serious Discharged With: Self, Relative Critical Care Note Critical Care Time?: Yes (55 min-critical care time only) Critical care comment: Due to concerns for patients condition deteriorating, the care required my highest level of attention and readiness to intervene. I assessed the patient, reviewed the medical records, ordered the appropriate tests and treatments, then reassessed for results and responsiveness. I communicated with medical personnel and consultants and formulated a plan of care. Total critical care time excludes any procedures Stability Stability form required: No Heart Score Heart Score: Heart Score Response (Comments) Value History Slightly Suspicious 0 EKG Normal 0 Age >65 2 Risk Factors >3 or Hx ASHD 2 Troponin N/A 0 Total 4 I personally scribed for BRISEYDA SIERRA MD ([email or web address]) on 10/15/25 at 23:33. Electronically submitted by Anthony Cruz ([email or web address]). BRISEYDA SIERRA MD Oct 15, 2025 23:33
[2025-10-16] VITALS (12 sets, daily range): BP systolic 123; BP diastolic 64–69; PULSE 70–89; RESP 18–21; TEMP 97.9–98.1; O2SAT 92–100
--- NOTE | 2025-10-16 00:07 | DVH ---
CHEST RADIOGRAPH Indication: sob Technique: Single frontal view of the chest was obtained COMPARISON: XY CHEST PORTABLE on DOS: 10/14/25, CT CHEST WITHOUT CONTRAST on DOS: 10/11/25, XY CHEST PORTABLE on DOS: 10/10/25 FINDINGS: Lines and Tubes: None Lungs: Clear Pleura: No effusion. No pneumothorax. Cardiomediastinal contours: Unremarkable Bones: Unremarkable IMPRESSION: 1. No acute disease.
[2025-10-16] MEDS ORDERED: CEFEPIME 1GM/50ML 50 ML IV ONE (01:00)
[2025-10-16] MEDS: LACTATED RINGER'S 2,200 ML IV ONE (01:38)
[2025-10-16] MEDS: CEFEPIME 1GM/50ML 50 ML IV ONE (01:43)
[2025-10-16] MEDS: VANCOMYCIN 1GM/250ML KIT 250 ML IV ONE (02:30)
[2025-10-16 03:11] LABS: COVID19 ANTIGEN SOFIA FIA NEGATIVE (NEGATIVE)
--- NOTE | 2025-10-16 03:13 | DVHHPRES ---
History of Present Illness Resident Creating Document: DANYEL GRAF RESIDENT History of Present Illness 85 year old retired , who worked at the [employer], COPD not on home oxygen, HTN, dyslipidemia presented to the ER with shortness of breath and visual hallucination. He felt like he was . He was discharged from the [facility] just yesterday, was treated for pneumonia. He went home ate and sleep good, when he went onto bed started feeling shortness of breaths and which improved on sitting up. So he decided to come back again,no other complaints at this time. PMH: As above PSH: Denies Allergies: none Smoke:5 pack year in his 30s Alcohol: 3 beers a day, last drink 8 days ago Full code. Review of Systems Allergies: Coded Allergies: No Known Drug Allergy (Verified Allergy, Unknown, 05/29/17) Medications Current Medications Medications Dose Ordered Sig/Boni Route Start Time Stop Time Status Last Admin Dose Admin Doxycycline Hyclate 100 ml @ 50 mls/hr Q12H IV 10/16/25 03:15 Exam Vital Signs Vital Signs Date Time Temp Pulse Resp B/P (MAP) Pulse Ox O2 Delivery O2 Flow Rate FiO2 10/16/25 01:37 19 94 Room Air* 0 21 10/16/25 01:35 98.0 70 123/64 (83) 98.0 Exam Pt is lying on bed General Appearance: Alert, Oriented X3, Cooperative, Mild distress HEENT: Atraumatic, Mucous membranes moist/pink Respiratory: Wheezing to auscultation, Normal air movement, No added sounds Cardiovascular: Regular rate, Normal S1, Normal S2, No murmurs Abdominal/ : Active bowel sounds, Soft, no distention, no tenderness Extremities: No edema, Normal pulses, No tenderness/swelling Skin: No Significant rash, except past surgical scars Neuro: Normal speech, sensorimotor deficits none Psych/Mental Status: Mental status NL, Mood NL Nurse was there as residential sales representative during examination Labs/Xrays Labs Test 10/16/25 01:13 10/16/25 01:12 10/15/25 23:00 Range/Units Lactic Acid Level 1.4 0.4-2.0 mmol/L Troponin I High Sensitivity 41 </=54 ng/L Influenza Type A Antigen Negative Negative Influenza Type B Antigen Negative Negative SARS-CoV-2 Antigen (Rapid) Negative NEGATIVE White Blood Count 12.7 H 4.4-10.8 10^3/uL Red Blood Count 4.66 4.5-5.90 10^6/uL Hemoglobin 14.7 13.5-17.5 g/dL Hematocrit 42.7 41.0-53.0 % Mean Corpuscular Volume 91.6 80.0-100.0 fL Mean Corpuscular Hemoglobin 31.5 28.0-32.0 pg Mean Corpuscular Hemoglobin Concent 34.4 32.0-36.0 g/dL Red Cell Distribution Width 14.0 11.8-14.3 % Platelet Count 271 140-450 10^3/uL Mean Platelet Volume 6.8 L 6.9-10.8 fL Neutrophils (%) (Auto) 77.1 37.0-80.0 % Lymphocytes (%) (Auto) 11.7 10.0-50.0 % Monocytes (%) (Auto) 11.0 0.0-12.0 % Eosinophils (%) (Auto) 0.1 0.0-7.0 % Basophils (%) (Auto) 0.1 0.0-2.0 % Neutrophils # (Auto) 9.8 H 1.6-8.6 10 ^3/uL Lymphocytes # (Auto) 1.5 0.4-5.4 10 ^3/uL Monocytes # (Auto) 1.4 H 0-1.3 10 ^3/uL Eosinophils # (Auto) 0 0-0.8 10 ^3/uL Basophils # (Auto) 0 0-0.2 10 ^3/uL Nucleated Red Blood Cells 0.0 % Sodium Level 139 136-145 mmol/L Potassium Level 5.0 3.5-5.1 mmol/L Chloride Level 100 98-107 mmol/L Carbon Dioxide Level 28 20-31 mmol/L Anion Gap 11 5-15 Blood Urea Nitrogen 31 H 9-23 mg/dL Creatinine 0.99 0.700-1.30 mg/dL Glomerular Filtration Rate Calc 74 >90 mL/min BUN/Creatinine Ratio 31.3 H 10.0-20.0 Serum Glucose 97 74-106 mg/dL Calcium Level 9.2 8.7-10.4 mg/dL SEPSIS Sepsis Screen Date sepsis recognized/suspect: Oct 16, 2025 Time Sepsis recognized/suspect: 134 Recent Procedure: No On Antibiotic Therapy: Yes Respiratory Rate >20: No Heart Rate >90: No Temp<36 C (96.8 F) or >38.3 C: No SBP <90 or MAP <65 mmHG: No New Acute Mental Status Change: No Is the patient on CPAP, BIPAP,: No Physician Orders Chest Portable (10/15/25 22:53) Electrocardigram (10/15/25 22:53) Electrocardigram (10/15/25 23:53) Electrocardigram (10/16/25 01:53) Urinalysis (10/16/25 00:46) Accucheck (10/16/25 00:46) Blood Culture (10/16/25 00:46) Notify Md If Map <65 Or Bp<90 (10/16/25 00:46) If Map<65 Start Vasopressor (10/16/25 00:46) Sepsis Reassesment After Fluid (10/16/25 01:46) Admit (10/16/25 02:56) Allergies (10/16/25 02:56) Code Status (10/16/25 02:56) Complete Blood Count (10/17/25 04:00) Comprehensive Metabolic Panel (10/17/25 04:00) Cardiac Diet-2gna,Lofat,Lochol (10/16/25 Breakfast) Oxygen By Nasal Cannula (10/16/25 02:56) Stat Ekg For Chest Pain (10/16/25 02:56) Notify Md Of Changes From Base (10/16/25 02:56) Director Of Curriculum And Instruction For 24 Hours (10/16/25 02:56) Emergency Dysrhythmia Protocol (10/16/25 02:56) Rhythm Strips Once Every Shift (10/16/25 02:56) Doxycycline 100mg/100ml (Vibramycin) (10/16/25 03:15) Methylprednisolone Sod Succ (Solu Medrol (10/16/25 03:15) Methylprednisolone Sod Succ (Solu Medrol (10/16/25 10:00) Albuterol Medneb (Ventolin Medneb) (10/16/25 03:15) Albuterol Medneb (Ventolin Medneb) (10/16/25 03:15) Ipratropium Medneb (Atrovent Medneb) (10/16/25 03:15) Ipratropium Medneb (Atrovent Medneb) (10/16/25 03:15) Cont Med Neb Intial Tx (10/16/25 03:05) Med Neb Initial Treatment (10/16/25 03:05) Med Poncho Sub Treatment (10/16/25 03:05) Inline Breath Treatment (10/16/25 03:05) Ippb Treatment (10/16/25 03:05) Vital Signs Date Time Temp Pulse Resp B/P (MAP) Pulse Ox O2 Delivery O2 Flow Rate FiO2 10/16/25 01:37 19 94 Room Air* 0 21 10/16/25 01:35 98.0 70 19 123/64 (83) 94 98.0 10/15/25 22:00 97.5 94 20 121/72 96 97.5 Laboratory Tests Test 10/15/25 23:00 10/16/25 01:13 White Blood Count 12.7 10^3/uL (4.4-10.8) H Lactic Acid Level 1.4 mmol/L (0.4-2.0) Medications Medications Dose Ordered Sig/Boni Route Start Time Stop Time Status Last Admin Dose Admin Cefepime HCl 50 ml @ 50 mls/hr ONCE ONCE IV 10/16/25 01:45 10/16/25 02:44 DC 10/16/25 01:43 50 MLS/HR Lactated Ringer's 2,200 ml @ 2,200 mls/hr ONCE ONCE IV 10/16/25 01:00 10/16/25 01:59 DC 10/16/25 01:38 2,200 MLS/HR Vancomycin HCl 250 ml @ 250 mls/hr ONCE ONCE IV 10/16/25 01:00 10/16/25 01:59 DC 10/16/25 02:30 250 MLS/HR Reassessment Post Fluid Date of Reassessment: Oct 16, 2025 Time of Reassessment: 01:45 Temperature: 98 Systolic BP: 160 Blood Pressure Time: 01:35 Respiration: 19 Oxygen Saturation: 98 Pulse rate: 70 Pulse Location: Radial Pulse Strength: Normal Capillary Refill Exam: < 3 seconds Skin Temperature: Warm Skin Color: WNL Fingernail Color: WNL Assessment/Plan Assessment/Plan Acute exacerbation of COPD Pneumonia due to Gram-positive or Gram-negative organism -nasal cannula oxygen -breathing treatment with albuterol and ipratropium -methylprednisolone -doxycycline antibiotic GI prophylaxis: Pantoprazole DVT prophylaxis: SCD Diet: Cardiac Goals of care discussed with the patient for more than 27 minutes: Full code status Case discussed with Dr. Amato , patient and RN Plan discussed with: Patient, Other (RN) My Orders Orders - DANYEL GRAF RESIDENT Procedure Category Date Status Time Admit ADMIT 10/16/25 Transmitted 02:56 Allergies DAVID 10/16/25 In Process 02:56 Code Status CODE 10/16/25 Transmitted 02:56 Complete Blood Count LAB 10/17/25 Verified 04:00 Comprehensive LAB 10/17/25 Verified Metabolic Panel 04:00 Cardiac DIET 10/16/25 Transmitted Diet-2gna,Lofat,Lochol Breakfast Oxygen By Nasal RT 10/16/25 Transmitted Cannula 02:56 Stat Ekg For Chest DAVID 10/16/25 In Process Pain 02:56 Notify Md Of Changes DAVID 10/16/25 In Process From Base 02:56 Director Of Curriculum And Instruction For [facility] 10/16/25 In Process 24 Hours 02:56 Emergency Dysrhythmia DAVID 10/16/25 In Process Protocol 02:56 Rhythm Strips Once [facility] 10/16/25 In Process Every Shift 02:56 Doxycycline PHA 10/16/25 In Process 100mg/100ml 03:15 Methylprednisolone PHA 10/16/25 Transmitted Sod Succ (Solu Medrol 03:15 Methylprednisolone PHA 10/16/25 Verified Sod Succ (Solu Medrol 10:00 Albuterol Medneb PHA 10/16/25 Verified (Ventolin Medneb) 03:15 Albuterol Medneb PHA 10/16/25 Verified (Ventolin Medneb) 03:15 Ipratropium Medneb PHA 10/16/25 Verified (Atrovent Medneb) 03:15 Ipratropium Medneb PHA 10/16/25 Verified (Atrovent Medneb) 03:15 Cont Med Neb Intial Tx RT 10/16/25 Verified 03:05 Med Neb Initial RT 10/16/25 Verified Treatment 03:05 Med Poncho Sub Treatment RT 10/16/25 Verified 03:05 Inline Breath RT 10/16/25 Verified Treatment 03:05 Ippb Treatment RT 10/16/25 Verified 03:05 Visit Coding STANDARD RES Billing Provider: SHANNAN AMATO MD Date of Service if different f: Oct 16, 2025 Common Visit Codes: [id number] INP/OBS CARE (HIGH) Secondary Visit Codes: [id number] CARE PLAN 30 MINUTES DANYEL GRAF RESIDENT Oct 16, 2025 03:13
[2025-10-16] MEDS: ALBUTEROL SULF 2.5 MG/0.5ML(0.5%) NEB SOLN NEB ONE (03:27)
[2025-10-16] MEDS: IPRATROPIUM BROM 0.5 MG/2.5ML INH SOL NEB ONE (03:27)
[2025-10-16] MEDS: methylPREDNISolone SOD SUCC 40 MG/ML VL IV ONE (03:55)
[2025-10-16 04:18] LABS: Urine Protein, UAD Negative (Negative)
[2025-10-16] MEDS: DOXYCYCLINE 100MG/100ML 100 ML IV SCH (04:20)
[2025-10-16] MEDS: ALBUTEROL SULF 2.5 MG/0.5ML(0.5%) NEB SOLN NEB PRN (05:26)
[2025-10-16] MEDS: IPRATROPIUM BROM 0.5 MG/2.5ML INH SOL NEB PRN (05:26)
[2025-10-16] MEDS: methylPREDNISolone SOD SUCC 40 MG/ML VL IV SCH (10:00)
--- NOTE | 2025-10-16 12:44 | DVHPN2 ---
Assessment/Plan Assessment/Plan progress note 85 M with hx of COPD and constipation admitted for COPD exacerbation. Reported cough. nonproductive, difficulty sleeping and constipation. 10/16 on RA, rhonchi, some cough, improving physical exam AOX4 b/l coarse rhonchi, no wheezing s1 s2 rrr abdomen soft nontender no LE edema labs ekg imaging reviewed assessment and plan acute on chronic hypoxic RF COPD group E w/ exacerbation PNA? gp vs gn slow transit constipation insomnia leukocytosis maintain 02 >88% breathing treatment prednisone doxy MiraLAX, senna melatonin diet cardiac dvt ppx lovenox full code Plan discussed with: Patient My Orders Orders - FRANTZ RICE MD Procedure Category Date Status Time Prednisone Tablet PHA 10/17/25 Logged 10:00 Senna Pod Tablet PHA 10/16/25 Logged (Senokot Tablet) 22:00 Polyethylene Glycol PHA 10/17/25 Logged 17g Powder (Miralax 10:00 Melatonin (Melatonin) PHA 10/16/25 Logged 22:00 Basic Metabolic Panel LAB 10/17/25 Verified 04:00 Date of Service: Oct 16, 2025 Billing Provider: FRANTZ RICE MD Common Visit Codes: [id number] INP/OBS CARE(HIGH) FRANTZ RICE MD Oct 16, 2025 12:44
[2025-10-16] MEDS: SENNA 8.6 MG TAB PO SCH (21:50)
[2025-10-16] MEDS: MELATONIN 5 MG TAB PO SCH (21:50)
[2025-10-17] VITALS (15 sets, daily range): BP systolic 102–119; BP diastolic 59–77; PULSE 56–86; RESP 17–22; TEMP 97.3–97.9; O2SAT 92–100
[2025-10-17 06:14] LABS: Hematocrit 39.3 % (41.0-53.0); Hemoglobin 13.6 g/dL (13.5-17.5); Mean Corpuscular Hemoglobin 31.3 pg (28.0-32.0); Mean Corpuscular Volume 90.7 fL (80.0-100.0); Nucleated Red Blood Cells % 0.0 %
[2025-10-17 06:37] LABS: Alanine Aminotransferase 37 U/L (7-40); Albumin 3.6 g/dL (3.2-4.8); Alkaline Phosphatase 68 U/L (46-116); Anion Gap 10 (5-15); BUN/Creatinine Ratio 25.6 (10.0-20.0); Blood Urea Nitrogen 23 mg/dL (9-23); Calcium 8.9 mg/dL (8.7-10.4); Carbon Dioxide 25 mmol/L (20-31); Chloride 102 mmol/L (98-107); Glucose 80 mg/dL (74-106); Potassium 4.0 mmol/L (3.5-5.1); Sodium 137 mmol/L (136-145); Total Protein 5.9 g/dL (5.7-8.2)
[2025-10-17 06:38] LABS: Bilirubin, Total 0.8 mg/dL (0.2-1.0)
[2025-10-17] MEDS: POLYETHYLENE GLYCOL 17 GM PWDR PO SCH (09:15)
[2025-10-17] MEDS: predniSONE 20 MG TAB PO SCH (09:15)
--- NOTE | 2025-10-17 10:24 | ECG ---
[facility] Test Date: 2025-10-16 Test Time: 12:57:49 Pat Name: JOHNSON LEIJA Department: Room: 0276 Gender: M [employer]: CHIDI : 1940 Requested By: BRISEYDA SIERRA Order Number: [id number] Reading MD: Wallace Cardenas Measurements Intervals Happy Rate: 78 P: 99 AL: 123 QRS: 79 QRSD: 90 T: 12 QT: 394 QTc: 449 Interpretive Statements Sinus rhythm LVH with secondary repolarization abnormality Electronically Signed On 10-19-2025 19:22:13 PST by Wallace Cardenas Please click the below link to view image of tracing.
--- NOTE | 2025-10-17 12:44 | DVHPN2 ---
Assessment/Plan Assessment/Plan progress note 85 M with hx of COPD and constipation admitted for COPD exacerbation. Reported cough. nonproductive, difficulty sleeping and constipation. 10/16 on RA, rhonchi, some cough, improving 10/17 improving, on o2 satting 100%, titrating down to keep above 90%. feeling better, good BM physical exam AOX4 b/l coarse rhonchi, no wheezing s1 s2 rrr abdomen soft nontender no LE edema labs ekg imaging reviewed assessment and plan acute on chronic hypoxic RF COPD group E w/ exacerbation PNA? gp vs gn slow transit constipation insomnia leukocytosis panic attack? maintain 02 >90% breathing treatment prednisone doxy and ceft MiraLAX, senna melatonin hydroxizine prn diet cardiac dvt ppx lovenox full code Plan discussed with: Patient My Orders Orders - FRANTZ RICE MD Procedure Category Date Status Time Transfer Orders XFER 10/16/25 Transmitted 12:44 Discontinue Tele DAVID 10/16/25 In Process 12:44 Date of Service: Oct 17, 2025 Billing Provider: FRANTZ RICE MD Common Visit Codes: [id number] INP/OBS CARE(HIGH) FRANTZ RICE MD Oct 17, 2025 12:44
[2025-10-17] MEDS ORDERED: hydrOXYzine HCL 10 MG TAB PO PRN (12:45)
[2025-10-18] VITALS (13 sets, daily range): BP systolic 110–115; BP diastolic 56–66; PULSE 62–81; RESP 12–20; TEMP 97.4–98.2; O2SAT 88–100
[2025-10-18] MEDS ORDERED: UMEC1INH IN (12:04)
[2025-10-18] MEDS ORDERED: ALBU108A5 IN (12:04)
[2025-10-18] MEDS ORDERED: SENN8.6C PO (12:04)
[2025-10-18] MEDS ORDERED: PRED20TA2 PO (12:04)
[2025-10-18] MEDS ORDERED: LEVO500T91 PO (12:04)
--- NOTE | 2025-10-18 12:10 | DVHDS2 ---
Discharge Summary Date of Admission Oct 16, 2025 at 02:56 Date of Discharge: Oct 18, 2025 Labs/Diagnostic Data: Laboratory Results Test 10/17/25 05:31 10/16/25 01:19 10/16/25 01:13 10/16/25 01:12 White Blood Count 10.6 10^3/uL (4.4-10.8) Red Blood Count 4.33 10^6/uL (4.5-5.90) Hemoglobin 13.6 g/dL (13.5-17.5) Hematocrit 39.3 % (41.0-53.0) Mean Corpuscular Volume 90.7 fL (80.0-100.0) Mean Corpuscular Hemoglobin 31.3 pg (28.0-32.0) Mean Corpuscular Hemoglobin Concent 34.5 g/dL (32.0-36.0) Red Cell Distribution Width 13.8 % (11.8-14.3) Platelet Count 234 10^3/uL (140-450) Mean Platelet Volume 7.0 fL (6.9-10.8) Neutrophils (%) (Auto) 68.6 % (37.0-80.0) Lymphocytes (%) (Auto) 20.4 % (10.0-50.0) Monocytes (%) (Auto) 10.4 % (0.0-12.0) Eosinophils (%) (Auto) 0.5 % (0.0-7.0) Basophils (%) (Auto) 0.1 % (0.0-2.0) Neutrophils # (Auto) 7.3 10 ^3/uL (1.6-8.6) Lymphocytes # (Auto) 2.2 10 ^3/uL (0.4-5.4) Monocytes # (Auto) 1.1 10 ^3/uL (0-1.3) Eosinophils # (Auto) 0.1 10 ^3/uL (0-0.8) Basophils # (Auto) 0 10 ^3/uL (0-0.2) Nucleated Red Blood Cells 0.0 % Sodium Level 137 mmol/L (136-145) Potassium Level 4.0 mmol/L (3.5-5.1) Chloride Level 102 mmol/L (98-107) Carbon Dioxide Level 25 mmol/L (20-31) Anion Gap 10 (5-15) Blood Urea Nitrogen 23 mg/dL (9-23) Creatinine 0.90 mg/dL (0.700-1.30) Glomerular Filtration Rate Calc 83 mL/min (>90) BUN/Creatinine Ratio 25.6 (10.0-20.0) Serum Glucose 80 mg/dL (74-106) Calcium Level 8.9 mg/dL (8.7-10.4) Total Bilirubin 0.8 mg/dL (0.2-1.0) Aspartate Amino Transferase (AST) 21 U/L (13-40) Alanine Aminotransferase (ALT) 37 U/L (7-40) Alkaline Phosphatase 68 U/L (46-116) Total Protein 5.9 g/dL (5.7-8.2) Albumin 3.6 g/dL (3.2-4.8) Urine Color Light-yellow (Yellow) Urine Clarity Clear (Clear) Urine pH 5.5 (5.0-9.0) Urine Specific [place] 1.015 (1.001-1.035) Urine Protein Negative (Negative) Urine Ketones Negative (Negative) Urine Blood Negative /uL (Negative) Urine Nitrite Negative (Negative) Urine Bilirubin Negative (Negative) Urine Urobilinogen Normal mg/dL (Negative) Urine Leukocyte Esterase Negative /uL (Negative) Urine RBC None seen /hpf (0 - 3) Urine Microscopic WBC < 1 /HPF (0-3) Urine Squamous Epithelial Cells None seen /hpf (<5) Urine Bacteria None seen /hpf (None Seen) Urine Hyaline Casts Few /lpf (0 - 2) Urine Glucose Normal mg/dL (Normal) Lactic Acid Level 1.4 mmol/L (0.4-2.0) Troponin I High Sensitivity 41 ng/L (</=54) Influenza Type A Antigen Negative (Negative) Influenza Type B Antigen Negative (Negative) SARS-CoV-2 Antigen (Rapid) Negative (NEGATIVE) Other Laboratory Tests 10/17/25 05:31 Brief Hx & Hospital Course: 85 M with hx of COPD and constipation admitted for COPD exacerbation. Reported cough. nonproductive, difficulty sleeping and constipation. started on ceft doxy and prednisone, breathing treatments. bcx clear. 10/16 on RA, rhonchi, some cough, improving. had panic attack, given hydroxizine. 10/17 improving, on o2 satting 100%, titrating down to keep above 90%. feeling better, good BM today comfortable on RA, will dc with prednisone, levo, incruse elipta and albuterol, has pcp apt 10/25. 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 gp vs gn slow transit constipation insomnia leukocytosis panic attack? Discharge Disposition: Home Discharge Instruct/Medications Diet: Consistent carbohydrate, Cardiac 2g Na,low cholest Activity: No Restrictions, As Tolerated Follow Up/Referral: pcp 10/25 dc clinic 10/[address] cervantes Medications: incruse albuterol prednisone levofloxacin Scheduled Atorvastatin Calcium (Atorvastatin Calcium), 1 TAB PO DAILY, (Reported) Doxycycline (Monohydrate) (Doxycycline), 100 MG PO BID Levofloxacin Hemihydrate (Levofloxacin), 1 TAB PO DAILY Prednisone (Prednisone), 1 TAB PO BID, (Reported) Prednisone (Prednisone), 40 MG PO DAILY Umeclidinium [place] (Incruse Ellipta), 62.5 MCG IN DAILY Scheduled PRN Albuterol Sulfate (Albuterol Sulfate), 0.63 MG IN Q4HP PRN Albuterol Sulfate (Ventolin Mdi), 90 MCG IN Q4HP PRN Albuterol Sulfate (Albuterol Sulfate Hfa), 108 MCG IN Q2HP PRN Sennosides (Senna), 8.6 MG PO DAILY PRN Miscellaneous Medications Albuterol Sulfate (Albuterol Sulfate Hfa), INH, (Reported) Discharge Statement: "Patient was advised to return to the ER or call 911 if any headaches, dizziness, shortness of breath, chest pain, abdominal pain, bleeding, fevers, or worsening of medical condition. Patient was counseled about treatment plan, medications, possible side effects, patientverbalized understanding. All questions were answered to the best of my ability. This discharge took greater then 30 minutes in planning, reviewing documentation, counseling the patient, and discussing with other team members." ASSESSMENT ASSESSMENT Assessment COPD exacerbation PNA gp vs gn Date of Service: Oct 18, 2025 Billing Provider: FRANTZ RICE MD Common Visit Codes: 10924-CFK/OBS DISCH DAY >30min FRANTZ RICE MD Oct 18, 2025 12:10
[2025-10-18 15:12] LABS: Base Excess -1.0 mmol/L (-2.0-3.0)
--- NOTE | 2025-10-18 18:04 | DVH ---
CHEST RADIOGRAPH INDICATION: chest pain TECHNIQUE: Single frontal view of the chest was obtained COMPARISON: XY CHEST PORTABLE on DOS: 10/15/25, XY CHEST PORTABLE on DOS: 10/14/25, XY CHEST PORTABLE on DOS: 10/10/25 FINDINGS: Lines and Tubes: None Lungs: No focal consolidation. Mild hyperinflation of the lungs. Pleura: No effusion. No pneumothorax. Cardiomediastinal contours: Unremarkable Bones: No acute osseous abnormality. IMPRESSION: No acute cardiopulmonary disease.
[2025-10-19] VITALS (12 sets, daily range): BP systolic 111–130; BP diastolic 38–74; PULSE 60–85; RESP 12–20; TEMP 97.6–98.3; O2SAT 90–99
--- NOTE | 2025-10-19 10:54 | ECG ---
[facility] Test Date: 2025-10-18 Test Time: 16:44:46 Pat Name: JOHNSON LEIJA Department: Room: 0276 A Gender: M Party Coordinator: HAYDEN : 1940 Requested By: FRANTZ RICE Order Number: [id number] Reading MD: Wallace Cardenas Measurements Intervals [place] Rate: 66 P: 39 MA: 128 QRS: 59 QRSD: 83 T: 72 QT: 408 QTc: 428 Interpretive Statements Sinus rhythm Abnormal R-wave progression, early transition Electronically Signed On 10-19-2025 18:29:28 PST by Wallace Cardenas Please click the below link to view image of tracing.
--- NOTE | 2025-10-19 11:26 | DVHPN2 ---
Assessment/Plan Assessment/Plan progress note 85 M with hx of COPD and constipation admitted for COPD exacerbation. Reported cough. nonproductive, difficulty sleeping and constipation. 10/16 on RA, rhonchi, some cough, improving 10/17 improving, on o2 satting 100%, titrating down to keep above 90%. feeling better, good BM 10/18 patient for discharge, but reported not feeling well enough, cxr repeated, EKG repeated, all within acceptable limit. 10/19 d/w patient, understand current condition. stable to dc home. meds sent including hydroxizine. does not qalify for home o2. 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 gp vs gn slow transit constipation insomnia leukocytosis panic attack? maintain 02 >90% breathing treatment prednisone doxy and ceft MiraLAX, senna melatonin hydroxizine prn discharge diet cardiac dvt ppx lovenox full code Plan discussed with: Patient My Orders Orders - FRANTZ RICE MD Procedure Category Date Status Time Discharge DISCHARGE 10/18/25 Transmitted 12:05 Schedule For Dc DAVID 10/18/25 In Process Clinic F/U 12:07 Abg W/ Co-Ox RT 10/18/25 Logged 14:37 Chest Xray 1 View XY 10/18/25 Resulted 15:36 Communication Order ORDERS 10/19/25 Transmitted 08:50 Date of Service: Oct 19, 2025 Billing Provider: FRANTZ RICE MD Common Visit Codes: 45060-PVU/OBS DISCH DAY >30min FRANTZ RICE MD Oct 19, 2025 11:26
[2025-10-19] MEDS ORDERED: HYDR-3682 PO (11:27)
== END 2025-10-19 14:12 | disposition home or self-care (01) | DRG 177 ==
LOC: ER 21:55 → MERGE 10-16 02:56 → OVERFLOW 10-16 02:56 → TELE-WESTW 10-16 21:30 → WEST WING 10-18 01:33
PROVIDERS: ADMIT Student in an Organized Health Care Education/Training Program; ATTEND Student in an Organized Health Care Education/Training Program
DX: J15.69 Pneumonia due to other Gram-negative bacteria (principal); J96.21 Acute and chronic respiratory failure with hypoxia; J44.0 Chronic obstructive pulmonary disease with (acute) lower respiratory infection; J15.9 Unspecified bacterial pneumonia; I10 Essential (primary) hypertension; J44.1 Chronic obstructive pulmonary disease with (acute) exacerbation; K59.01 Slow transit constipation; G47.00 Insomnia, unspecified; E78.5 Hyperlipidemia, unspecified; F41.0 Panic disorder [episodic paroxysmal anxiety]; Z20.822 Contact with and (suspected) exposure to COVID-19; Z99.3 Dependence on wheelchair; Z79.899 Other long term (current) drug therapy
CPT/HCPCS: 36415; 36600; 71045; 80048; 80053; 81001; 82805; 83605; 84484; 85025; 87040; 87081; 87426; 87804; 93005; 94640; 99291; G0378